=== PATIENT | male | born 1940 | race Hispanic/Latino ===

== ENCOUNTER 2016-06-23 13:39 | Inpatient (IN) | payer MEDICARE ==
--- NOTE | 2016-06-23 15:17 | ED PDOC ---
HPI: General Adult Time Seen by Provider: 06/23/16 13:48 Chief Complaint (Nursing): Abdominal Pain Chief Complaint (Provider): abdominal pain History Per: Patient History/Exam Limitations: no limitations Onset/Duration Of Symptoms: Days (x 5) Have you had recent travel within the past 21 days to any of the following countries: [place], [place], [place] or [place]?: No Current Symptoms Are (Timing): Still Present Additional History Per: Family (brother and rommate ), Prior Records Additional Complaint(s): Jose Segura is a 76 year old male, with a previous medical history of acute renal failure, who presents to the ED with complaints of constipation for the pas5 days. Pt denies any abdominal pain, nausea, vomiting or a decrease in appetite. Pt reports to feeling "great". Pt was admitted last month for acute renal failure and nstemi. Pt was sent to [facility] where he signed out AMA last week because he feels great. Pt's roommate states pt is unable to care for himself or walk. Pt's brother who has the power of steam tender is requesting a crisis evaluation after expressing concern that the pt is unable to care for himself. PMD: none provided Past Medical History Reviewed: Historical Data, Nursing Documentation, Vital Signs Vital Signs: Last Vital Signs Temp 97.3 F L 06/24/16 08:00 Pulse 63 06/24/16 08:00 Resp 18 06/24/16 08:00 BP 112/59 L 06/24/16 08:00 Pulse Ox 98 06/24/16 08:00 - Medical History Other PMH: Cerebral palsy - Surgical History Surgical History: No Surg Hx - Family History Family History: States: Unknown Family Hx - Immunization History Hx Tetanus Toxoid Vaccination: No Hx Influenza Vaccination: No Hx Pneumococcal Vaccination: No - Home Medications Home Medications: Ambulatory Orders Medication Instructions Recorded Aspirin [Ecotrin] 81 mg PO DAILY #30 tabec 05/21/16 Bisoprolol [Zebeta] 2.5 mg PO DAILY #30 tab 05/21/16 Nystatin [Nystop Topical Powder] 1 applic TOP TID #7 bottle 05/21/16 - Allergies Allergies/Adverse Reactions: Allergies Allergy/AdvReac Type Severity Reaction Status Date / Time No Known Allergies Allergy Unverified 05/05/13 07:56 Review of Systems ROS Statement: Except As Marked, All Systems Reviewed And Found Negative Constitutional: Negative for: Fever Gastrointestinal: Positive for: Constipation (x 5). Negative for: Vomiting, Abdominal Pain Neurological: Positive for: Weakness Physical Exam - Reviewed Nursing Documentation Reviewed: Yes Vital Signs Reviewed: Yes - Physical Exam Appears: Positive for: Well, Non-toxic, No Acute Distress Head Exam: Positive for: ATRAUMATIC, NORMAL INSPECTION, NORMOCEPHALIC Skin: Positive for: Normal Color, Warm, DRY Eye Exam: Positive for: EOMI, PERRL Neck: Positive for: Normal Cardiovascular/Chest: Positive for: Regular Rate, Rhythm. Negative for: Tachycardia Respiratory: Positive for: Normal Breath Sounds. Negative for: Wheezing, Respiratory Distress Gastrointestinal/Abdominal: Positive for: Normal Exam, Bowel Sounds, Soft. Negative for: Tenderness, Distended, Guarding Back: Positive for: Normal Inspection Rectal: Negative for: Black Stool Extremity: Positive for: Normal ROM Neurologic/Psych: Positive for: Alert, Oriented (x3), Motor/Sensory Deficits ( right side spastic paralysis), Gait (unsteady). Negative for: extruder tender II-XII - Laboratory Results Result Diagrams: 06/23/16 15:26 06/23/16 15:26 - ECG O2 Sat by Pulse Oximetry: 99 (RA) Pulse Ox Interpretation: Normal - Radiology X-Ray: Viewed By Me, Read By Radiologist X-Ray Interpretation: No Acute Disease - Other Rad KUB abdomen X-Ray: Read By Radiologist X-Ray Interpretation: constipation Medical Decision Making Medical Decision Making: Initial Impression: constipation, dementia, renal failure, general deconditioning Initial Plan: * CXR * CT head w/o contrast * x-ray abdomen * EKG * labs * urine dipstick * reevaluation 17:21 CT head FINDINGS: BRAIN: Status post craniotomy bilateral frontal regions. Associated encephalomalacia. Diffuse atrophy with prominence of the ventricles and sulci noted. No mass effect or midline shift. Tiny metallic density in the region of encephalomalacia in the region of the left basal ganglia. Intracranial atherosclerosis. Small lacunar infarcts appear chronic. For example, 5 mm right thalamic lacunar infarct. Scattered periventricular and subcortical white matter hypodensities, which are nonspecific, but often seen with chronic microvascular ischemic disease. Left convexity subdural hematoma with evidence acute on contact hemorrhage with high density blood within that collection. Left subdural measures approximately 10 mm in diameter. VENTRICLES: No hydrocephalus. CALVARIUM: See above. PARANASAL SINUSES: Unremarkable as visualized. No significant inflammatory changes. MASTOID AIR CELLS: Unremarkable as visualized. No inflammatory changes. OTHER FINDINGS: Opacification of bilateral external auditory canals, likely cerumen. Extensive degenerative changes at C1-C2. IMPRESSION: Acute on chronic left convexity subdural hematoma. Status post craniotomy bilateral frontal regions. Associated encephalomalacia. Nonspecific white matter changes. Chronic appearing lacunar infarcts. Tiny metallic density as described above; correlate with surgical history- this was present on CT performed in 2011. Findings discussed with Dr. Koroma on 06/23/16 at 5:18 p.m. Discussed the case with Dr Feliz who recommends no interventions and no ICU monitoring at this time. Pt is stable neurosurgically. Scribe Attestation: Documented by Tessy Marcus, acting as a scribe for Julita Koroma MD Provider Scribe Attestation: All medical record entries made by the Scribe were at my direction and personally dictated by me. I have reviewed the chart and agree that the record accurately reflects my personal performance of the history, physical exam, medical decision making, and the department course for this patient. I have also personally directed, reviewed, and agree with the discharge instructions and disposition. Disposition - Clinical Impression Clinical Impression: SDH (subdural hematoma), Constipation - Patient ED Disposition Is Patient to be Admitted: Yes Discussed With : Edgardo Sykes Doctor Will See Patient In The: Hospital Counseled Patient/Family Regarding: Studies Performed, Diagnosis - Disposition Disposition Time: 17:00 Condition: FAIR - Pt Status Changed To: Hospital Disposition Of: Inpatient - Admit Certification Admit to Inpatient:: After my assessment, the patient will require hospitalization for at least two midnights. This is because of the severity of symptoms shown, intensity of services needed, and/or the medical risk in this patient being treated as an outpatient. - POA Present On Arrival: Falls Or Trauma
--- NOTE | 2016-06-23 15:47 | RAD ---
HISTORY: constipation COMPARISON: None available FINDINGS: BOWEL: Prominent air-filled loops of small and large bowel, nonspecific. No definite free air. Mild constipation. BONES: Degenerative changes of the spine. OTHER FINDINGS: None. IMPRESSION: Prominent air-filled loops of small large bowel, nonspecific. No definite free air. Mild constipation.
--- NOTE | 2016-06-23 15:49 | RAD ---
HISTORY: weakness COMPARISON: Chest x-ray performed 05/14/16 TECHNIQUE: Chest, one view. FINDINGS: Examination limited by habitus and hypoinflation. LUNGS: Right middle lobe atelectasis or scarring re-identified. Please note that chest x-ray has limited sensitivity for the detection of pulmonary masses. PLEURA: No significant pleural effusion identified. No definite pneumothorax . CARDIOVASCULAR: Heart size appears within normal limits. Ectatic aorta containing atherosclerotic calcifications. OSSEOUS STRUCTURES: Degenerative changes. VISUALIZED UPPER ABDOMEN: Unremarkable. OTHER FINDINGS: None. IMPRESSION: Right middle lobe atelectasis or scarring re-identified.
[2016-06-23 15:56] LABS: BASO # 0.1 K/uL (0.0-0.2); BASO % 0.9 % (0.0-2.0); EOS # 0.1 K/uL (0.0-0.7); EOS % 1.1 % (0.0-4.0); HEMATOCRIT 35.7 % (35.0-51.0); LYMPH # 0.9 K/uL (1.0-4.3); LYMPH % 8.4 % (20.0-40.0); MEAN CORPUSCULAR HEMOGLOBIN 32.2 pg (27.0-31.0); MEAN CORPUSCULAR HGB CONC 32.5 g/dL (33.0-37.0); MEAN PLATELET VOLUME 7.2 fl (7.2-11.7); MONO # 0.9 K/uL (0.0-0.8); MONO % 8.6 % (0.0-10.0); NEUT # 8.5 K/uL (1.8-7.0); PLATELET COUNT 238 K/uL (130-400); RED CELL DISTRIBUTION WIDTH 13.6 % (11.5-14.5); WHITE BLOOD COUNT 10.4 K/uL (4.8-10.8)
[2016-06-23 16:07] LABS: CALCIUM 8.7 mg/dL (8.4-10.2); POTASSIUM 4.9 MMOL/L (3.6-5.0)
[2016-06-23 17:07] LABS: BASOPHIL 1 % (0-2); EOSINOPHIL 2 % (0-7); NEUTROPHIL 82 % (42-75); TOTAL CELLS COUNTED 100
--- NOTE | 2016-06-23 17:24 | CT ---
PROCEDURE: CT HEAD WITHOUT CONTRAST. HISTORY: dementia COMPARISON: Noncontrast head CT performed 03/26/12 TECHNIQUE: Axial computed tomography images were obtained through the head/brain without intravenous contrast. Radiation dose: Total exam DLP = noncontrast head CT performed 03/26/12 mGy-cm. FINDINGS: BRAIN: Status post craniotomy bilateral frontal regions. Associated encephalomalacia. Diffuse atrophy with prominence of the ventricles and sulci noted. No mass effect or midline shift. Tiny metallic density in the region of encephalomalacia in the region of the left basal ganglia. Intracranial atherosclerosis. Small lacunar infarcts appear chronic. For example, 5 mm right thalamic lacunar infarct. Scattered periventricular and subcortical white matter hypodensities, which are nonspecific, but often seen with chronic microvascular ischemic disease. Left convexity subdural hematoma with evidence acute on contact hemorrhage with high density blood within that collection. Left subdural measures approximately 10 mm in diameter. VENTRICLES: No hydrocephalus. CALVARIUM: See above. PARANASAL SINUSES: Unremarkable as visualized. No significant inflammatory changes. MASTOID AIR CELLS: Unremarkable as visualized. No inflammatory changes. OTHER FINDINGS: Opacification of bilateral external auditory canals, likely cerumen. Extensive degenerative changes at C1-C2. IMPRESSION: Acute on chronic left convexity subdural hematoma. Status post craniotomy bilateral frontal regions. Associated encephalomalacia. Nonspecific white matter changes. Chronic appearing lacunar infarcts. Tiny metallic density as described above; correlate with surgical history- this was present on CT performed in 2011. Findings discussed with Dr. Koroma on 06/23/16 at 5:18 p.m.
[2016-06-23 18:53] LABS: PARTIAL THROMBOPLASTIN TIME 28.9 SECONDS (23.3-32.5)
--- NOTE | 2016-06-24 07:14 | CARD ---
APPROVED REPORT EKG Measurement Heart [id number] ID [id number] <Conclusion> Sinus rhythm with premature atrial complexes Otherwise normal ECG
[2016-06-24] MEDS ORDERED: Permethrin 5% CREAM TOP ONE (11:00)
--- NOTE | 2016-06-24 13:53 | PQF GENQUE ---
Dr. Sykes, (1)Pressure Ulcer(s) POA? ;if yes (2) Sites and Stages OR: Disagree OR: Other explanation of clinical findings OR:Unable to determine -H and P not entered yet -ER MD: POA:Present On Arrival: Falls Or Trauma -Nurses Admission Assessment:06/23:Pressure Ulcer Assessment; left heel: purple or maroon localized area intact skin; left thigh: partial thickness loss of dermis shallow open ulcer; right hip: erythema: partial thickness loss of dermis presenting as a shallow ulcer; right ankle: erythema; partial thickness loss of dermis presenting as a shallow open ulcer; right buttocks; erythema: partial thickness loss of dermis presenting as a shallow ulcer; sacrum: partial thickness loss of dermis presenting as a shallow open ulcer -06/24:Wound RN :Notes tab; presents to unit with pressure ulcers right hip; right hip MASD; b/l groin/gluteal cleft: reddened skin consistent with fungal rash This form is a permanent part of the medical record Clarification of your documentation is requested to better reflect the severity of illness and intensity of treatment of your patient. Indicators present [] Specify: [] [] Specify: [] [] Specify: [] [] Specify: [] Location in the medical record that reflects the above clinical findings: [] Treatment Provided: [] PHYSICIAN'S RESPONSE Based on your medical judgment of the clinical indicators outlined above please clarify the following: [] Practitioner response [] If unable to determine, please check the box, sign and date. Present On Admission (POA) Indicator: [] Present at the time of admission [] Not present at the time of admission [] Clinically Undetermined In responding to this query, please exercise your independent professional judgment. The fact that a question is asked does not imply that any particular answer is desired or expected. Thank you for your clarification on this documentation. If you have any questions please call. * Thank you, Mar Way RN BSN ext. #[phone] MTDD
--- NOTE | 2016-06-24 14:18 | CP.PCM.HP ---
<Tami Zelaya - Last Filed: 06/24/16 14:35> History of Present Illness - History of Present Illness History of Present Illness: Pt is a 76 year old male, with a pmhx of cerebral palsy , acute renal failure, who presents to the ED with complaints of constipation for the past 5 days. Pt denies any abdominal pain, nausea, vomiting or a decrease in appetite. Pt reports to feeling "great". Pt was admitted last month for acute renal failure and nstemi. Pt was sent to [facility] where he signed out AMA last week because he feels great. Pt's roommate states pt is unable to care for himself or walk. Pt's brother who has the power of regulatory attorney is requesting a crisis evaluation after expressing concern that the pt is unable to care for himself. Ed showed a subdural hematoma. Pt seen and examined this morning at bedside, does not have any complaints. states he feels well. denies chest pain, sob, or any visual changes Present on Admission - Present on Admission Any Indicators Present on Admission: Yes Urinary Catheter: No Decubitus Ulcer Present: Yes (right hip ) Review of Systems - Review of Systems All systems: reviewed and no additional remarkable complaints except Review of Systems: Per HPI Past Patient History - Past Medical History & Family History Past Medical History?: Yes - Past Social History Smoking Status: Former Smoker - CARDIAC Hx Cardiac Disorders: Yes Hx Heart Attack: Yes (NSTEmi) - PULMONARY Hx Respiratory Disorders: Yes (Hx heavy smoker) - NEUROLOGICAL Hx Neurological Disorder: Yes (cerebral palsy/ chronic subdural hematoma/ Encephalomalcia/Atrophy) - HEENT Hx HEENT Problems: No - RENAL Hx Chronic Kidney Disease: Yes (ARF in past) - ENDOCRINE/METABOLIC Hx Endocrine Disorders: No - HEMATOLOGICAL/ONCOLOGICAL Hx Blood Disorders: No Hx AIDS: No Hx Human Immunodeficiency Virus (HIV): No - INTEGUMENTARY Hx Dermatological Problems: Yes (Pressure ulcers and severe excoriation) - MUSCULOSKELETAL/RHEUMATOLOGICAL Hx Musculoskeletal Disorders: Yes Hx Falls: Yes (cannot remember no. of falls) Other/Comment: cerebral palsy - GASTROINTESTINAL Hx Gastrointestinal Disorders: No - GENITOURINARY/GYNECOLOGICAL Hx Genitourinary Disorders: No - PSYCHIATRIC Hx Substance Use: No - SURGICAL HISTORY Hx Surgeries: Yes Other/Comment: "brain surgery" - ANESTHESIA Hx Anesthesia: Yes Hx Anesthesia Reactions: No Hx Malignant Hyperthermia: No Meds Allergies/Adverse Reactions: Allergies Allergy/AdvReac Type Severity Reaction Status Date / Time No Known Allergies Allergy Unverified 05/05/13 07:56 Physical Exam - Constitutional Appears: No Acute Distress Additional comments: scar like appearing lesions noted on his back and lower extremity - Head Exam Head Exam: NORMOCEPHALIC - Eye Exam Eye Exam: Normal appearance - Respiratory Exam Respiratory Exam: Clear to Auscultation Bilateral, NORMAL BREATHING PATTERN. absent: Rhonchi, Wheezes - Cardiovascular Exam Cardiovascular Exam: REGULAR RHYTHM, +S1 - GI/Abdominal Exam GI & Abdominal Exam: Normal Bowel Sounds, Soft. absent: Tenderness - Extremities Exam Extremities exam: Negative for: pedal edema Additional comments: excoriations noted bilaterally - Back Exam Additional comments: excoriations noted, lesions noted - Neurological Exam Neurological exam: Alert Results - Vital Signs Recent Vital Signs: Last Vital Signs Temp 97.3 F L 06/24/16 08:00 Pulse 63 06/24/16 08:00 Resp 18 06/24/16 08:00 BP 112/59 L 06/24/16 08:00 Pulse Ox 99 06/24/16 10:01 - Labs Result Diagrams: 06/23/16 15:26 06/23/16 15:26 Labs: Laboratory Results - last 24 hr 06/23/16 06/23/16 06/24/16 17:57 23:47 07:07 PT 11.4 H INR 1.10 H APTT 28.9 Troponin I 0.1760 H* 0.1580 H* Assessment & Plan - Assessment and Plan (Free Text) Assessment: 76 y/o male with h/o Cerebral palsy with gait disturbance admitted Plan: Subdural hematoma neurosurgery consulted monitor constipation bowel regime ordered skin lesions- Scabies pt isolated permethrin applied SHUKRI possibly acute on chronic IVF renal dosing of medication nephro consult: Dr. grant, await recommendations Elevated troponins likely renal origin patient had possible previous inferior infarct last admission; patient stable; no acute cardiac problem likely Cardio on board: Dr Digna loco as ordered 3. DVT prophylaxis- SCDs for now, awaiting cardiology recommendation <Edgardo Sykes K - Last Filed: 06/27/16 12:39> Results - Vital Signs Recent Vital Signs: Last Vital Signs Temp 97.5 F L 06/27/16 08:18 Pulse 55 L 06/27/16 08:18 Resp 18 06/27/16 08:18 BP 136/70 06/27/16 08:18 Pulse Ox 98 06/27/16 08:18 - Labs Result Diagrams: 06/27/16 06:20 06/27/16 06:30 Labs: Laboratory Results - last 24 hr 06/27/16 06/27/16 06:20 06:30 WBC 6.2 RBC 3.78 L Hgb 12.2 Hct 37.4 MCV 99.0 H MCH 32.4 H MCHC 32.7 L RDW 13.7 Plt Count 218 Sodium 143 Potassium 5.3 H Chloride 109 H Carbon Dioxide 22 Anion Gap 17 BUN 55 H Creatinine 2.3 H Est GFR ( Amer) 34 Est GFR (Non-Af Amer) 28 Random Glucose 84 Calcium 8.9 Assessment & Plan - Assessment and Plan (Free Text) Assessment: Patient was personally seen and examined by me in rounds with residents. Available labs and diagnostic data reviewed. Case, Patient's condition and management plan discussed with residents in rounds. Agree with resident's documentation. Plan: As ordered. Edgardo Sykes MD
--- NOTE | 2016-06-24 16:12 | CON ---
DATE: 06/24/2016 REASON FOR CONSULTATION: Elevated troponin. HISTORY OF PRESENT ILLNESS: The patient is a 76-year-old male who has history of chronic subdural he matoma, has history of multiple falls. Was recently discharged to subacute rehab; however, he signed against medical advice. He presents because of abdominal pain. The patient also reported multiple falls at home, but he cannot elaborate on how and why he fell. The patient denies any chest pain. T he patient was admitted last month to [facility] because of cough and cold symptoms. At that time, the patient had slightly elevated troponin of 0.175 and 0.158. An echocardiograph study was performe d this past May and was reported to be a normal echocardiogram. [facility]. As I mentioned earlier, he denies any chest pain. SOCIAL HISTORY: The patient is occasional drinker. He lives with a friend according to him. Aniket ramos, his brother has power of corporate attorney. MEDICATIONS: Atarax 25 mg q.6 hours p.r.n., aspirin 81 mg once a day, normal saline 40 mL an hour, Z ebeta 2.5 mg once a day. REVIEW OF SYSTEMS: The patient is unaware of seizures and denies any history of nausea or vomiting. He denies any fever or chills. PAST MEDICAL HISTORY: History of craniotomy for subdural hematoma. History of [place] palsy. PHYSICAL EXAMINATION: GENERAL: The patient is an elderly male who does not appear to be in acute distress. VITAL SIGNS: Blood pressure 112/59, heart rate 63, temperature 97.3, respirations 18. HEENT: Pale conjunctivae. CHEST: Clear. HEART: S1, S2 regular. ABDOMEN: Soft. EXTREMITIES: No edema. EKG revealed sinus rhythm with an APC. LABORATORY DATA: CBC: WBC 10.4, hemoglobin 11.6, hematocrit 35.7, platelet count 238,000. SMA-7: Sodium 135, potassium 4.9, chloride 109, CO2 of 17, glucose 100, BUN 60, creatinine 2.4. Troponin 0. [address] scan done yesterday revealed [id number] left convexity subdural hematom a. Status post craniotomy, bilateral frontal lesions. Associated encephalomalacia. Nonspecific whi te matter changes. Chronic appearing lacunar infarct. A tiny metallic density correlates with surgi ced history. This was present on a CT scan of 2011. ASSESSMENT: 1. Borderline troponin elevation. Does not necessarily reflect myocardial injury in view of abnorma l EKG, absence of chest pain and recent normal echocardiograph study and that fact that did have mike lar scenario in May admission last month. 2. Rule out acute cerebrovascular accident. 3. Chronic renal insufficiency. 4. Uzedz-[id number]-[id number] left convexity subdural hematoma. RECOMMENDATIONS: Continue aspirin 81 mg once a day, Zebeta 2.5 mg once a day. Start Lipitor at 20 m g once a day. Anticoagulation or aggressive antiplatelet therapy are not justified in the presence o f acute component of subdural hematoma. Neurology and neurosurgical consults are pending. Shaka Sawyer MD cc: [id number] TT: 06/24/2016 16:11:21 Confirmation # [id number] Dictation # [id number]
[2016-06-24] MEDS: Sodium Chloride 0.9% 1,000 ML IV SCH (19:30)
[2016-06-25] MEDS: Sodium Chloride 0.9% 1,000 ML IV SCH (04:08)
--- NOTE | 2016-06-25 08:45 | DS ---
A 76-year-old male [facility], apparently fell. Brought in apparently in his usual depresse d mental status. CT of the brain was done, which showed a large convexity subdural hygroma. The pat ient is status post ____ bilateral either jaqui holes or craniotomy, difficult to discern. In any cl e, there was tremendous underlying atrophy and there was a subdural collection on the left side measu ring approximately 8 or 9 mm, absolutely no mass effect. No evidence of any acute hemorrhage. IMPRESSION AND PLAN: Apparently, the patient is being admitted for other reasons. Therefore, I woul d, just to be safe, perhaps consider a followup CT tomorrow, but there really should be no need. Aga in, this is a chronic longstanding finding without clinical significance. Gregory Feliz MD cc: [id number] TT: 06/24/2016 12:52:54
[2016-06-25 11:16] LABS: MEAN CELL VOLUME 98.5 fl (80.0-94.0); MEAN CORPUSCULAR HEMOGLOBIN 32.6 pg (27.0-31.0); MEAN CORPUSCULAR HGB CONC 33.1 g/dL (33.0-37.0); RED CELL DISTRIBUTION WIDTH 13.9 % (11.5-14.5); WHITE BLOOD COUNT 6.4 K/uL (4.8-10.8)
[2016-06-25 11:25] LABS: CALCIUM 8.8 mg/dL (8.4-10.2); POTASSIUM 4.5 MMOL/L (3.6-5.0)
--- NOTE | 2016-06-25 12:28 | CP.PCM.PN ---
<Tami Zelaya - Last Filed: 06/25/16 12:31> Subjective - Date & Time of Evaluation Date of Evaluation: 06/25/16 Time of Evaluation: 08:15 - Subjective Subjective: Pt was seen and examined at bedside, does not have any complaints, states he feels fine. Objective - Vital Signs/Intake and Output Vital Signs (last 24 hours): Temp Pulse Resp BP Pulse Ox 98.1 F 69 20 105/56 L 97 06/25/16 08:16 06/25/16 09:00 06/25/16 08:16 06/25/16 08:16 06/25/16 08:16 - Medications Medications: Current Medications Aspirin (Ecotrin) 81 mg PO DAILY [facility] Last Admin: 06/25/16 09:18 Dose: 81 mg Atorvastatin Calcium (Lipitor) 20 mg PO DAILY [facility] Last Admin: 06/25/16 09:18 Dose: 20 mg Bisoprolol Fumarate (Zebeta) 2.5 mg PO DAILY [facility] Last Admin: 06/25/16 09:19 Dose: 2.5 mg Hydroxyzine HCl (Atarax) 25 mg PO Q6 PRN PRN Reason: Itching / Pruritus - Labs Labs: 06/25/16 11:03 06/25/16 11:03 PT 11.4 SECONDS (9.6-11.2) H 06/23/16 17:57 INR 1.10 (0.92-1.08) H 06/23/16 17:57 APTT 28.9 SECONDS (23.3-32.5) 06/23/16 17:57 - Constitutional Appears: Non-toxic, No Acute Distress - Head Exam Head Exam: NORMOCEPHALIC - Eye Exam Eye Exam: Normal appearance - ENT Exam ENT Exam: Mucous Membranes Moist - Respiratory Exam Respiratory Exam: Clear to Ausculation Bilateral, NORMAL BREATHING PATTERN. absent: Wheezes - Cardiovascular Exam Cardiovascular Exam: REGULAR RHYTHM, +S1, +S2 - GI/Abdominal Exam GI & Abdominal Exam: Soft, Normal Bowel Sounds. absent: Tenderness - Neurological Exam Neurological Exam: Awake - Skin Skin Exam: Rash (scabies rash all over body ) Assessment and Plan - Assessment and Plan (Free Text) Assessment: 76 y/o male with h/o Cerebral palsy with gait disturbance admitted Plan: Subdural hematoma neurosurgery consulted monitor constipation bowel regime ordered skin lesions- Scabies pt isolated permethrin applied SHUKRI possibly acute on chronic IVF renal dosing of medication nephro consult: Dr. grant, await recommendations Elevated troponins likely renal origin patient had possible previous inferior infarct last admission; patient stable; no acute cardiac problem likely Cardio on board: Dr Digna loco as ordered DVT prophylaxis- SCDs for now, awaiting cardiology recommendation Discharge Disposition : social workers on case to work out placement <Edgardo Sykes - Last Filed: 06/27/16 12:40> Objective - Vital Signs/Intake and Output Vital Signs (last 24 hours): Temp Pulse Resp BP Pulse Ox 97.5 F L 55 L 18 136/70 98 06/27/16 08:18 06/27/16 08:18 06/27/16 08:18 06/27/16 08:18 06/27/16 08:18 - Medications Medications: Current Medications Aspirin (Ecotrin) 81 mg PO DAILY [facility] Last Admin: 06/27/16 08:31 Dose: 81 mg Atorvastatin Calcium (Lipitor) 20 mg PO DAILY [facility] Last Admin: 06/27/16 08:32 Dose: 20 mg Bisoprolol Fumarate (Zebeta) 2.5 mg PO DAILY [facility] Last Admin: 06/27/16 08:32 Dose: 2.5 mg Hydroxyzine HCl (Atarax) 25 mg PO Q6 PRN PRN Reason: Itching / Pruritus - Labs Labs: 06/27/16 06:20 06/27/16 06:30 PT 11.4 SECONDS (9.6-11.2) H 06/23/16 17:57 INR 1.10 (0.92-1.08) H 06/23/16 17:57 APTT 28.9 SECONDS (23.3-32.5) 06/23/16 17:57 Assessment and Plan - Assessment and Plan (Free Text) Assessment: Patient was personally seen and examined by me in rounds with residents. Available labs and diagnostic data reviewed. Case, Patient's condition and management plan discussed with residents in rounds. Agree with resident's documentation. Plan: As ordered. Edgardo Sykes MD
--- NOTE | 2016-06-25 15:04 | PN ---
DATE: 06/25/2016 The patient denies any chest pain. He has good appetite. He denies any headache or dizziness. PHYSICAL EXAMINATION: VITAL SIGNS: Blood pressure 106/58, heart rate 54, temperature 97.5, respirations 20. HEENT: Pale conjunctivae. CHEST: Bilateral rhonchi. HEART: S1, S2 regular. EXTREMITIES: No edema. LABORATORIES: Hemoglobin and hematocrit 11.3 and 34.0. White count and platelet count is within nor mal limits. SMA-7: Sodium 139, potassium 4.5, chloride 112, CO2 of 22, glucose 118, BUN 53, creatin ine 2.4. ASSESSMENT: 1. Borderline troponin elevation, unlikely represents acute myocardial injury in the absence of ches t pain or ischemic EKG changes. 2. Acute on top of chronic subdural hematoma. 3. Chronic renal insufficiency. RECOMMENDATIONS: Continue current aspirin 81 mg once a day, Lipitor 20 mg once a day and Zebeta at 2 .5 mg once a day. Obtain serum D-dimer and schedule patient for venous Doppler of lower extremities. Shaka Sawyer MD cc: [id number] TT: 06/25/2016 15:04:40 Confirmation # [id number] Dictation # [id number] lilli
--- NOTE | 2016-06-25 15:54 | CP.PCM.CON ---
History of Present Illness - History of Present Illness History of Present Illness: 76 y/o male with Hx/o cerebral palsy, subdural hematoma,s/p craniotomy was admitted for c/o constipation for 5 days & multiple falls. renal consult is requested because of elevated BUN/Creat Pt was adm to [facility] a wk ago for frequent falls, NSEMI & acute kidney injury. Was evaluated by Dr Escoto. Kidney function had improved but creat had stabilized around 2.2. Renal US was unremarkable. Past Patient History - Past Medical History & Family History Past Medical History?: Yes - Past Social History Smoking Status: Former Smoker - CARDIAC Hx Cardiac Disorders: Yes Hx Heart Attack: Yes (NSTEmi) - PULMONARY Hx Respiratory Disorders: Yes (Hx heavy smoker) - NEUROLOGICAL Hx Neurological Disorder: Yes (cerebral palsy/ chronic subdural hematoma/ Encephalomalcia/Atrophy) - HEENT Hx HEENT Problems: No - RENAL Hx Chronic Kidney Disease: Yes (ARF in past) - ENDOCRINE/METABOLIC Hx Endocrine Disorders: No - HEMATOLOGICAL/ONCOLOGICAL Hx Blood Disorders: No Hx AIDS: No Hx Human Immunodeficiency Virus (HIV): No - INTEGUMENTARY Hx Dermatological Problems: Yes (Pressure ulcers and severe excoriation) - MUSCULOSKELETAL/RHEUMATOLOGICAL Hx Musculoskeletal Disorders: Yes Hx Falls: Yes (cannot remember no. of falls) Other/Comment: cerebral palsy - GASTROINTESTINAL Hx Gastrointestinal Disorders: No - GENITOURINARY/GYNECOLOGICAL Hx Genitourinary Disorders: No - PSYCHIATRIC Hx Substance Use: No - SURGICAL HISTORY Hx Surgeries: Yes Other/Comment: "brain surgery" - ANESTHESIA Hx Anesthesia: Yes Hx Anesthesia Reactions: No Hx Malignant Hyperthermia: No Meds Allergies/Adverse Reactions: Allergies Allergy/AdvReac Type Severity Reaction Status Date / Time No Known Allergies Allergy Unverified 05/05/13 07:56 - Medications Medications: Current Medications Aspirin (Ecotrin) 81 mg PO DAILY [facility] Last Admin: 06/25/16 09:18 Dose: 81 mg Atorvastatin Calcium (Lipitor) 20 mg PO DAILY [facility] Last Admin: 06/25/16 09:18 Dose: 20 mg Bisoprolol Fumarate (Zebeta) 2.5 mg PO DAILY [facility] Last Admin: 06/25/16 09:19 Dose: 2.5 mg Hydroxyzine HCl (Atarax) 25 mg PO Q6 PRN PRN Reason: Itching / Pruritus Physical Exam - Constitutional Appears: No Acute Distress - Head Exam Head Exam: NORMOCEPHALIC - Eye Exam Additional comments: No icterus - ENT Exam ENT Exam: Mucous Membranes Dry - Neck Exam Additional comments: Neck supple - Respiratory Exam Respiratory Exam: NORMAL BREATHING PATTERN Additional comments: Lungs clear - Cardiovascular Exam Cardiovascular Exam: REGULAR RHYTHM - GI/Abdominal Exam GI & Abdominal Exam: Soft Additional comments: No CVA tenderness - Extremities Exam Additional comments: No edema or cyanosis Results - Vital Signs Recent Vital Signs: Last Vital Signs Temp 97.5 F L 06/25/16 12:27 Pulse 54 L 06/25/16 12:27 Resp 20 06/25/16 12:27 BP 106/58 L 06/25/16 12:27 Pulse Ox 96 06/25/16 12:27 - Labs Result Diagrams: 06/25/16 11:03 06/25/16 11:03 Labs: Laboratory Results - last 24 hr 06/24/16 06/25/16 06/25/16 16:20 11:03 15:08 WBC 6.4 RBC 3.46 L Hgb 11.3 L Hct 34.0 L MCV 98.5 H MCH 32.6 H MCHC 33.1 RDW 13.9 Plt Count 220 D-Dimer, Quantitative 2.56 H Sodium 139 Potassium 4.5 Chloride 112 H Carbon Dioxide 22 Anion Gap 10 BUN 53 H Creatinine 2.4 H Est GFR ( Amer) 32 Est GFR (Non-Af Amer) 26 Random Glucose 118 H Calcium 8.8 Troponin I 0.1050 Assessment & Plan - Assessment and Plan (Free Text) Assessment: Acute on chronic renal failure. Renal function is stable Acute on chronic SDH Cerebral palsy Plan: Monitor renal function Will order Phos level, iPTH
--- NOTE | 2016-06-25 16:07 | US ---
PROCEDURE: Bilateral lower extremity venous duplex Doppler. HISTORY: r/o DVT COMPARISON: None available. TECHNIQUE: Bilateral common femoral, superficial femoral, popliteal and posterior tibial veins were evaluated. Flow was assessed with color Doppler, compressibility, assessment of phasic flow and augmentation response. FINDINGS: COMMON FEMORAL VEIN: Right CFV: Unremarkable. Left CFV: Unremarkable. SUPERFICIAL FEMORAL VEIN: Right SFV: Unremarkable. Left SFV: Unremarkable. POPLITEAL VEIN: Right Popliteal: Unremarkable. Left Popliteal: Unremarkable. POSTERIOR TIBIAL VEIN: Right PTV: Unremarkable. Left PTV: Unremarkable. OTHER FINDINGS: None. IMPRESSION: No evidence of deep venous thrombosis.
[2016-06-26 09:50] LABS: CALCIUM 8.7 mg/dL (8.4-10.2); POTASSIUM 4.8 MMOL/L (3.6-5.0)
--- NOTE | 2016-06-26 10:48 | CP.PCM.PCO ---
Assessment and Plan - Assessment and Plan (Free Text) Plan: Patient medically treated for scabies with permetherin cream on 06/24 and now off isolation.
--- NOTE | 2016-06-26 13:07 | CP.PCM.PN ---
<Tami Zelaya - Last Filed: 06/26/16 13:08> Subjective - Date & Time of Evaluation Date of Evaluation: 06/26/16 Time of Evaluation: 08:00 - Subjective Subjective: pt seen and examined at bedside, does not have any complaints. states he feel "fine". denies any chest pain, headache or shortness of breath Objective - Vital Signs/Intake and Output Vital Signs (last 24 hours): Temp Pulse Resp BP Pulse Ox 97.5 F L 53 L 20 125/67 95 06/26/16 12:57 06/26/16 12:57 06/26/16 12:57 06/26/16 12:57 06/26/16 12:57 - Medications Medications: Current Medications Aspirin (Ecotrin) 81 mg PO DAILY [facility] Last Admin: 06/26/16 10:02 Dose: 81 mg Atorvastatin Calcium (Lipitor) 20 mg PO DAILY [facility] Last Admin: 06/26/16 10:00 Dose: 20 mg Bisoprolol Fumarate (Zebeta) 2.5 mg PO DAILY [facility] Last Admin: 06/26/16 10:01 Dose: 2.5 mg Hydroxyzine HCl (Atarax) 25 mg PO Q6 PRN PRN Reason: Itching / Pruritus - Labs Labs: 06/25/16 11:03 06/26/16 09:31 PT 11.4 SECONDS (9.6-11.2) H 06/23/16 17:57 INR 1.10 (0.92-1.08) H 06/23/16 17:57 APTT 28.9 SECONDS (23.3-32.5) 06/23/16 17:57 - Constitutional Appears: Non-toxic, No Acute Distress - Eye Exam Eye Exam: Normal appearance - ENT Exam ENT Exam: Mucous Membranes Moist - Respiratory Exam Respiratory Exam: Clear to Ausculation Bilateral, NORMAL BREATHING PATTERN. absent: Rhonchi, Wheezes - Cardiovascular Exam Cardiovascular Exam: REGULAR RHYTHM, +S1, +S2 - GI/Abdominal Exam GI & Abdominal Exam: Soft, Normal Bowel Sounds. absent: Tenderness - Extremities Exam Extremities Exam: absent: Calf Tenderness - Neurological Exam Neurological Exam: Awake Assessment and Plan - Assessment and Plan (Free Text) Assessment: 76 y/o male with h/o Cerebral palsy with gait disturbance admitted Plan: Subdural hematoma neurosurgery recommendations appreciated monitor constipation bowel regime ordered skin lesions- Scabies pt isolated permethrin applied SHUKRI possibly acute on chronic IVF renal dosing of medication nephro consult: Dr. grant, await recommendations Elevated troponins likely renal origin patient had possible previous inferior infarct last admission; patient stable; no acute cardiac problem likely Cardio on board: Dr Digna loco as ordered DVT prophylaxis- SCDs for now, awaiting cardiology recommendation Discharge Disposition : pt is medically stable for discharge; social workers on case to work out placement <Edgardo Sykes - Last Filed: 06/27/16 12:43> Objective - Vital Signs/Intake and Output Vital Signs (last 24 hours): Temp Pulse Resp BP Pulse Ox 97.5 F L 55 L 18 136/70 98 06/27/16 08:18 06/27/16 08:18 06/27/16 08:18 06/27/16 08:18 06/27/16 08:18 - Medications Medications: Current Medications Aspirin (Ecotrin) 81 mg PO DAILY [facility] Last Admin: 06/27/16 08:31 Dose: 81 mg Atorvastatin Calcium (Lipitor) 20 mg PO DAILY [facility] Last Admin: 06/27/16 08:32 Dose: 20 mg Bisoprolol Fumarate (Zebeta) 2.5 mg PO DAILY [facility] Last Admin: 06/27/16 08:32 Dose: 2.5 mg Hydroxyzine HCl (Atarax) 25 mg PO Q6 PRN PRN Reason: Itching / Pruritus - Labs Labs: 06/27/16 06:20 06/27/16 06:30 PT 11.4 SECONDS (9.6-11.2) H 06/23/16 17:57 INR 1.10 (0.92-1.08) H 06/23/16 17:57 APTT 28.9 SECONDS (23.3-32.5) 06/23/16 17:57 Assessment and Plan - Assessment and Plan (Free Text) Assessment: Patient was personally seen and examined by me in rounds with residents. Available labs and diagnostic data reviewed. Case, Patient's condition and management plan discussed with residents in rounds. Agree with resident's documentation. Plan: As ordered. Edgardo Sykes MD
--- NOTE | 2016-06-26 14:15 | PN ---
DATE: 06/26/2016 Again, the patient denies any dizziness, headache or chest pain. PHYSICAL EXAMINATION: VITAL SIGNS: Blood pressure 125/63, heart rate 53, temperature 97.5, respirations 20. HEENT: No pallor or icterus. NECK: No JVD. CHEST: Clear. HEART: S1, S2 regular. EXTREMITIES: No edema. LABORATORIES: SMA-7: Sodium 136, potassium 4.8, chloride 110, CO2 20, glucose 121, BUN 54, creatini ne 2.2. ASSESSMENT: 1. Status post fall. 2. Acute on top of chronic subdural hematoma. 3. Borderline troponin elevation, unlikely represents acute myocardial injury. 4. Chronic renal insufficiency. RECOMMENDATIONS: Continue current aspirin 81 mg once a day, Lipitor at 20 mg once a day, Zebeta at 2 .5 mg once a day. The venous Doppler of lower extremities revealed no evidence of deep venous thromb osis. Prophylactic anticoagulation will not be justified in the presence of acute component of subdu ral hematoma. Shaka Sawyer MD cc: [id number] TT: 06/26/2016 14:14:29 Confirmation # [id number] Dictation # [id number]
--- NOTE | 2016-06-26 15:35 | CP.PCM.PN ---
Subjective - Date & Time of Evaluation Date of Evaluation: 06/26/16 Time of Evaluation: 01:00 - Subjective Subjective: Alert & communicative verbally Objective - Vital Signs/Intake and Output Vital Signs (last 24 hours): Temp Pulse Resp BP Pulse Ox 97.5 F L 53 L 20 125/67 95 06/26/16 12:57 06/26/16 12:57 06/26/16 12:57 06/26/16 12:57 06/26/16 12:57 - Medications Medications: Current Medications Aspirin (Ecotrin) 81 mg PO DAILY [facility] Last Admin: 06/26/16 10:02 Dose: 81 mg Atorvastatin Calcium (Lipitor) 20 mg PO DAILY [facility] Last Admin: 06/26/16 10:00 Dose: 20 mg Bisoprolol Fumarate (Zebeta) 2.5 mg PO DAILY [facility] Last Admin: 06/26/16 10:01 Dose: 2.5 mg Hydroxyzine HCl (Atarax) 25 mg PO Q6 PRN PRN Reason: Itching / Pruritus - Labs Labs: 06/25/16 11:03 06/26/16 09:31 PT 11.4 SECONDS (9.6-11.2) H 06/23/16 17:57 INR 1.10 (0.92-1.08) H 06/23/16 17:57 APTT 28.9 SECONDS (23.3-32.5) 06/23/16 17:57 - Respiratory Exam Additional comments: Lungs clear - Cardiovascular Exam Cardiovascular Exam: REGULAR RHYTHM - GI/Abdominal Exam GI & Abdominal Exam: Soft - Extremities Exam Additional comments: No edema Assessment and Plan - Assessment and Plan (Free Text) Assessment: Acute on chronic kidney dis. Renal function is stable CAD. + troponin SDH Cerebral Palsy Plan: Continue tp monitor renal function
--- NOTE | 2016-06-26 15:44 | CT ---
PROCEDURE: CT HEAD WITHOUT CONTRAST. HISTORY: f/u CT for subdural hematoma COMPARISON: 06/23/2016 TECHNIQUE: Axial computed tomography images were obtained through the head/brain without intravenous contrast. Radiation dose: Total exam DLP = 1309.54 mGy-cm. FINDINGS: HEMORRHAGE: No acute hemorrhage identified. There is a left convexity subdural collection of low attenuation with intermediate attenuation material dependently consistent with hematocrit effect. This likely represents acute on chronic subdural hemorrhage. The collection is grossly unchanged in size. It measures up to 10 mm in width. There is a small focus of high attenuation along the lateral wall of this collection likely representing blood clot. . This is seen on series 4, image 43. No new extra-axial collection is identified. There is no parenchymal hemorrhage noted. BRAIN: Bilateral frontal encephalomalacia immediately subjacent to bilateral frontal calvarial jaqui holes. Old large left basal ganglia lacunar infarct and bilateral old thalamic lacunar infarcts. Probable aneurysm clip on left side, series 4, image 25. Mild diffuse age-appropriate atrophy. Moderate periventricular white matter lucency consistent with chronic microvascular ischemic change. VENTRICLES: No ventriculomegaly. No midline shift. CALVARIUM: Bilateral frontal calvarial jaqui holes. PARANASAL SINUSES: Unremarkable as visualized. No significant inflammatory changes. MASTOID AIR CELLS: Unremarkable as visualized. No inflammatory changes. OTHER FINDINGS: Extensive cerumen in external auditory canal bilaterally IMPRESSION: Probable acute on chronic left convexity subdural hematoma. No significant change in size since 06/23/2016. Bilateral frontal calvarial jaqui holes. Bilateral frontal encephalomalacia. Old lacunar infarcts. Probable old aneurysm clip.
[2016-06-27 07:24] LABS: CALCIUM 8.9 mg/dL (8.4-10.2); POTASSIUM 5.3 MMOL/L (3.6-5.0)
[2016-06-27 07:30] LABS: HEMATOCRIT 37.4 % (35.0-51.0); MEAN CORPUSCULAR HEMOGLOBIN 32.4 pg (27.0-31.0); MEAN CORPUSCULAR HGB CONC 32.7 g/dL (33.0-37.0); RED CELL DISTRIBUTION WIDTH 13.7 % (11.5-14.5); WHITE BLOOD COUNT 6.2 K/uL (4.8-10.8)
--- NOTE | 2016-06-27 10:21 | CP.PCM.PN ---
Subjective - Date & Time of Evaluation Date of Evaluation: 06/27/16 Time of Evaluation: 10:19 - Subjective Subjective: Patient is arousable No acute distress Appeared to be comfortable Objective - Vital Signs/Intake and Output Vital Signs (last 24 hours): Temp Pulse Resp BP Pulse Ox 97.5 F L 55 L 18 136/70 98 06/27/16 08:18 06/27/16 08:18 06/27/16 08:18 06/27/16 08:18 06/27/16 08:18 - Medications Medications: Current Medications Aspirin (Ecotrin) 81 mg PO DAILY [facility] Last Admin: 06/27/16 08:31 Dose: 81 mg Atorvastatin Calcium (Lipitor) 20 mg PO DAILY [facility] Last Admin: 06/27/16 08:32 Dose: 20 mg Bisoprolol Fumarate (Zebeta) 2.5 mg PO DAILY [facility] Last Admin: 06/27/16 08:32 Dose: 2.5 mg Hydroxyzine HCl (Atarax) 25 mg PO Q6 PRN PRN Reason: Itching / Pruritus - Labs Labs: 06/27/16 06:20 06/27/16 06:30 PT 11.4 SECONDS (9.6-11.2) H 06/23/16 17:57 INR 1.10 (0.92-1.08) H 06/23/16 17:57 APTT 28.9 SECONDS (23.3-32.5) 06/23/16 17:57 - Constitutional Appears: No Acute Distress - ENT Exam ENT Exam: Mucous Membranes Moist - Respiratory Exam Respiratory Exam: absent: Chest Wall Tenderness - Cardiovascular Exam Cardiovascular Exam: absent: JVD, Rubs - GI/Abdominal Exam GI & Abdominal Exam: Normal Bowel Sounds. absent: Guarding - Extremities Exam Extremities Exam: absent: Calf Tenderness - Back Exam Back Exam: absent: CVA tenderness (L), CVA tenderness (R) - Neurological Exam Neurological Exam: Awake Assessment and Plan (1) SDH (subdural hematoma) Status: Acute (2) Renal injury Assessment & Plan: Most likely acute kidney injury also noted serum potassium going up 5.3 please repeat F continue to rise patient will need Kayexalate. Continue monitoring kidney function and electrolyte Gentle hydration Status: Acute
--- NOTE | 2016-06-27 12:19 | PQF GENQUE ---
Dr. Sykes, Please clarify the stage of the chronic kidney disease: Stage 1 Stage 2 (mild) Stage 3 (moderate) Stage 4 (severe) Stage 5 Other (please specify) Unable to determine Unknown -BUN:60->55;creatinine:2.4->2.3;GFR (Af Amer/Non-Af Amer):32/26->34/28; see EMR for all renal labs -06/25: renal consult:Acute on chronic renal failure. Renal function is stable This form is a permanent part of the medical record Clarification of your documentation is requested to better reflect the severity of illness and intensity of treatment of your patient. Indicators present [] Specify: [] [] Specify: [] [] Specify: [] [] Specify: [] Location in the medical record that reflects the above clinical findings: [] Treatment Provided: [] PHYSICIAN'S RESPONSE Based on your medical judgment of the clinical indicators outlined above please clarify the following: [] Practitioner response [] If unable to determine, please check the box, sign and date. Present On Admission (POA) Indicator: [] Present at the time of admission [] Not present at the time of admission [] Clinically Undetermined In responding to this query, please exercise your independent professional judgment. The fact that a question is asked does not imply that any particular answer is desired or expected. Thank you for your clarification on this documentation. If you have any questions please call. * Thank you, Mar Way RN ext. #[phone] MTDD
--- NOTE | 2016-06-27 12:37 | PN ---
DATE: 06/27/2016 The patient denies any dizziness or chest pain. PHYSICAL EXAMINATION: VITAL SIGNS: Blood pressure 136/70, heart rate 55, temperature 97.5. HEENT: Left eyebrow ecchymosis. NECK: No JVD. CHEST: Bilateral rhonchi. HEART: S1, S2 regular. EXTREMITIES: No edema. LABORATORIES: Today's hemoglobin and hematocrit 12.1 and 37.4, white count and platelet count are wi thin normal limit. Today's potassium level is 5.9, BUN and creatinine are 55 and 2.3. ASSESSMENT: 1. Status post a fall. 2. Chronic renal insufficiency. 3. Borderline troponin elevation. 4. Acute on top of chronic subdural hematoma. RECOMMENDATIONS: Continue aspirin 81 mg once a day, Lipitor 20 mg once a day, Zebeta 2.5 mg once a d ay. May discontinue telemetry. Shaka Sawyer MD cc: [id number] TT: 06/27/2016 12:36:45 Confirmation # [id number] Dictation # [id number]
--- NOTE | 2016-06-27 13:09 | CP.PCM.PN ---
<Tami Zelaya - Last Filed: 06/27/16 13:15> Subjective - Date & Time of Evaluation Date of Evaluation: 06/27/16 Time of Evaluation: 07:20 - Subjective Subjective: Pt seen and examined at bedside, denies any pain, sob, headache, cough, nausea or vomiting. does not have any complaints Objective - Vital Signs/Intake and Output Vital Signs (last 24 hours): Temp Pulse Resp BP Pulse Ox 97.5 F L 55 L 18 136/70 98 06/27/16 08:18 06/27/16 08:18 06/27/16 08:18 06/27/16 08:18 06/27/16 08:18 - Medications Medications: Current Medications Aspirin (Ecotrin) 81 mg PO DAILY [facility] Last Admin: 06/27/16 08:31 Dose: 81 mg Atorvastatin Calcium (Lipitor) 20 mg PO DAILY [facility] Last Admin: 06/27/16 08:32 Dose: 20 mg Bisoprolol Fumarate (Zebeta) 2.5 mg PO DAILY [facility] Last Admin: 06/27/16 08:32 Dose: 2.5 mg Hydroxyzine HCl (Atarax) 25 mg PO Q6 PRN PRN Reason: Itching / Pruritus - Labs Labs: 06/27/16 06:20 06/27/16 06:30 PT 11.4 SECONDS (9.6-11.2) H 06/23/16 17:57 INR 1.10 (0.92-1.08) H 06/23/16 17:57 APTT 28.9 SECONDS (23.3-32.5) 06/23/16 17:57 - Constitutional Appears: No Acute Distress - Eye Exam Eye Exam: Normal appearance - ENT Exam ENT Exam: Mucous Membranes Moist - Respiratory Exam Respiratory Exam: Clear to Ausculation Bilateral, NORMAL BREATHING PATTERN. absent: Rhonchi, Wheezes - Cardiovascular Exam Cardiovascular Exam: REGULAR RHYTHM, +S1, +S2 - GI/Abdominal Exam GI & Abdominal Exam: Soft, Normal Bowel Sounds. absent: Tenderness - Extremities Exam Extremities Exam: absent: Calf Tenderness - Neurological Exam Neurological Exam: Alert, Awake Assessment and Plan - Assessment and Plan (Free Text) Assessment: 76 y/o male with h/o Cerebral palsy with gait disturbance admitted Plan: Subdural hematoma neurosurgery recommendations appreciated monitor constipation bowel regime ordered skin lesions- Scabies treated with permethrin, off isolation SHUKRI possibly acute on chronic IVF renal dosing of medication nephro consult:recommendations appreciated Elevated troponins likely renal origin patient had possible previous inferior infarct last admission; patient stable; no acute cardiac problem likely Cardio on board: Dr Sawyer recommendations appreciated diet as ordered DVT prophylaxis- SCDs Discharge Disposition : pt is medically stable for discharge; social workers on case to work out placement <Edgardo Sykes - Last Filed: 07/09/16 11:52> Objective - Vital Signs/Intake and Output Vital Signs (last 24 hours): Temp Pulse Resp BP Pulse Ox 97.5 F L 82 18 119/68 96 07/04/16 16:18 07/04/16 16:18 07/04/16 16:18 07/04/16 16:18 07/04/16 16:18 - Labs Labs: 07/01/16 06:10 07/01/16 06:10 PT 11.4 SECONDS (9.6-11.2) H 06/23/16 17:57 INR 1.10 (0.92-1.08) H 06/23/16 17:57 APTT 28.9 SECONDS (23.3-32.5) 06/23/16 17:57 Assessment and Plan - Assessment and Plan (Free Text) Assessment: Patient was personally seen and examined by me in rounds with residents. Available labs and diagnostic data reviewed. Case, Patient's condition and management plan discussed with residents in rounds. Agree with resident's documentation. Plan: As ordered. Edgardo Sykes MD
[2016-06-28 07:27] LABS: CALCIUM 8.4 mg/dL (8.4-10.2); POTASSIUM 4.8 MMOL/L (3.6-5.0)
--- NOTE | 2016-06-28 08:32 | PN ---
DATE: 06/28/2016 The patient seen and examined. Interim events noted. Consults noted and appreciated. The patient r emains in progressive care unit on telemetry monitoring. The patient feels okay. ____ complaint, al though patient is not a good historian. PHYSICAL EXAMINATION: GENERAL: The patient is in no acute distress. VITAL SIGNS: Stable. Physical exam is essentially unchanged. HEART: S1, S2 normal, regular. LUNGS: Good bilateral air entry. ABDOMEN: Soft, nontender. EXTREMITIES: No edema, no calf swelling, no tenderness, no acute ischemia. CENTRAL NERVOUS SYSTEM: Essentially unchanged. DIAGNOSTIC DATA: Available diagnostic data reviewed. Overall, patient's general medical condition is stable. Telemetry monitoring does not reveal signifi cant arrhythmias. PLAN: As ordered. Edgardo Sykes MD cc: [id number] TT: 06/28/2016 08:32:06 Confirmation # [id number] Dictation # [id number] tn
--- NOTE | 2016-06-28 12:48 | CP.PCM.PN ---
Subjective - Date & Time of Evaluation Date of Evaluation: 06/28/16 Time of Evaluation: 12:00 - Subjective Subjective: Comfortable on bed Objective - Vital Signs/Intake and Output Vital Signs (last 24 hours): Temp Pulse Resp BP Pulse Ox 97.7 F 56 L 18 101/54 L 97 06/28/16 12:30 06/28/16 12:30 06/28/16 12:30 06/28/16 12:30 06/28/16 12:30 - Medications Medications: Current Medications Aspirin (Ecotrin) 81 mg PO DAILY [facility] Last Admin: 06/28/16 08:59 Dose: 81 mg Atorvastatin Calcium (Lipitor) 20 mg PO DAILY [facility] Last Admin: 06/28/16 08:58 Dose: 20 mg Bisoprolol Fumarate (Zebeta) 2.5 mg PO DAILY [facility] Last Admin: 06/28/16 08:59 Dose: 2.5 mg Hydroxyzine HCl (Atarax) 25 mg PO Q6 PRN PRN Reason: Itching / Pruritus - Labs Labs: 06/27/16 06:20 06/28/16 06:00 PT 11.4 SECONDS (9.6-11.2) H 06/23/16 17:57 INR 1.10 (0.92-1.08) H 06/23/16 17:57 APTT 28.9 SECONDS (23.3-32.5) 06/23/16 17:57 - Respiratory Exam Respiratory Exam: NORMAL BREATHING PATTERN Additional comments: Lungs clear - Cardiovascular Exam Cardiovascular Exam: REGULAR RHYTHM - Extremities Exam Additional comments: No edema - Neurological Exam Neurological Exam: Alert Additional comments: significant expressive dysarthria Assessment and Plan - Assessment and Plan (Free Text) Assessment: CKD stage 1V. Renal function is stable Cerebral palsy Chronic SDH Plan: Continue to monitor renal function PTH & phos
--- NOTE | 2016-06-28 13:32 | PN ---
DATE: 06/28/2016 The patient denies any dizziness, chest pain or headache. The patient's heart rate on the monitor is in upper 50s. PHYSICAL EXAMINATION: VITAL SIGNS: Blood pressure 101/54, heart rate 56, temperature 97.7, the lowest documented heart rat e since yesterday is 50. HEENT: Left eyebrow ecchymosis. NECK: No JVD. CHEST: Clear. HEART: S1, S2, regular. EXTREMITIES: No edema. LABORATORIES: Today's SMA-7: Sodium 141, potassium 4.8, chloride 109, CO2 23, glucose 81, BUN 53, c reatinine 2.2. ASSESSMENT: 1. Status post fall. 2. Borderline troponin elevation. 3. Acute on chronic subdural hematoma. 4. Chronic renal insufficiency. 5. Hypertension. RECOMMENDATIONS: Continue current aspirin 81 mg once a day, Lipitor at 20 mg once a day. Discontinu e Zebeta for now. Shaka Sawyer MD cc: [id number] TT: 06/28/2016 13:31:41 Confirmation # [id number] Dictation # [id number] tn
--- NOTE | 2016-06-29 07:50 | PN ---
DATE: 06/29/2016 The patient seen and examined. Interim events noted. Consults noted, appreciated. Nephrology valo elias and interventions noted and appreciated. The patient remains in progressive care unit on telemet ry monitoring. The patient is awake, responsive, feels okay. Denies any specific complaint. No trixie st pain, no shortness of breath. PHYSICAL EXAMINATION: GENERAL: The patient is in no acute distress. VITAL SIGNS: Stable. HEART: S1, S2 normal, regular. LUNGS: Good bilateral air entry. ABDOMEN: Soft, nontender. EXTREMITIES: No edema, no calf swelling, no tenderness, no acute ischemia. CENTRAL NERVOUS SYSTEM: Essentially unchanged. DIAGNOSTIC DATA: Available reviewed. Telemetry monitoring does not reveal significant arrhythmia. Creatinine level remains elevated consistent with chronic renal insufficiency. Overall, patient is medically stable. PLAN: As ordered. Edgardo Sykes MD cc: [id number] TT: 06/29/2016 07:49:22 Confirmation # [id number] Dictation # [id number] en
--- NOTE | 2016-06-29 12:20 | CP.PCM.PN ---
Subjective - Date & Time of Evaluation Date of Evaluation: 06/29/16 Time of Evaluation: 12:00 - Subjective Subjective: No acute distress Alert & comfortab;e Objective - Vital Signs/Intake and Output Vital Signs (last 24 hours): Temp Pulse Resp BP Pulse Ox 97.3 F L 50 L 18 128/75 97 06/29/16 08:00 06/29/16 09:00 06/29/16 08:00 06/29/16 08:00 06/29/16 08:00 - Medications Medications: Current Medications Aspirin (Ecotrin) 81 mg PO DAILY [facility] Last Admin: 06/29/16 08:39 Dose: 81 mg Atorvastatin Calcium (Lipitor) 20 mg PO DAILY [facility] Last Admin: 06/29/16 08:39 Dose: 20 mg Hydroxyzine HCl (Atarax) 25 mg PO Q6 PRN PRN Reason: Itching / Pruritus - Labs Labs: 06/27/16 06:20 06/28/16 06:00 PT 11.4 SECONDS (9.6-11.2) H 06/23/16 17:57 INR 1.10 (0.92-1.08) H 06/23/16 17:57 APTT 28.9 SECONDS (23.3-32.5) 06/23/16 17:57 - Respiratory Exam Additional comments: Lungs clear - Cardiovascular Exam Cardiovascular Exam: REGULAR RHYTHM Assessment and Plan - Assessment and Plan (Free Text) Assessment: CKD kidney function is stable Continue to monitor
--- NOTE | 2016-06-29 14:55 | PN ---
DATE: 06/29/2016 The patient denies any chest pain or shortness of breath. The patient denies any dizziness or headac he. PHYSICAL EXAMINATION: VITAL SIGNS: Blood pressure 110/55, heart rate 49, temperature 97.5, respirations 18. HEENT: Normocephalic. NECK: No JVD. CHEST: Clear. HEART: S1, S2 regular. EXTREMITIES: No edema. LABORATORIES: Yesterday's BUN and creatinine were 53 and 2.2. ASSESSMENT: 1. Acute on top of chronic subdural hematoma. 2. Sinus bradycardia. 3. Borderline troponin elevation. 4. Chronic insufficiency. RECOMMENDATIONS: Continue aspirin 81 mg once a day, Lipitor 20 mg once a day, Atarax 25 mg q. 6 hour s. Obtain a TSH level. Shaka Sawyer MD cc: [id number] TT: 06/29/2016 14:55:09 Confirmation # [id number] Dictation # [id number] an
--- NOTE | 2016-06-30 09:44 | PN ---
DATE: 06/30/2016 The patient seen and examined. Interim events noted. The patient remains in progressive care unit. The patient feels okay. No specific complaint of chest pain or shortness of breath. PHYSICAL EXAMINATION: GENERAL: The patient is in no acute distress. VITAL SIGNS: Stable. HEART: S1, S2 normal, regular. LUNGS: Good bilateral air entry. ABDOMEN: Soft, nontender. EXTREMITIES: No edema, no calf swelling, no tenderness, no acute ischemia. CENTRAL NERVOUS SYSTEM: Essentially unchanged. DIAGNOSTIC DATA: Available diagnostic data reviewed. Telemetry monitoring does not reveal significa nt arrhythmia. Overall, the patient's general medical condition is stable and improving. The patient is awaiting tr ansfer to subacute rehabilitation. PLAN: As ordered. Case and plan discussed with patient. Edgardo Sykes MD cc: [id number] TT: 06/30/2016 09:43:16 Confirmation # [id number] Dictation # [id number] mark anthony
[2016-06-30] MEDS ORDERED: Permethrin 5% CREAM TOP ONE (10:39)
--- NOTE | 2016-06-30 10:55 | CP.PCM.PN ---
Subjective - Date & Time of Evaluation Date of Evaluation: 06/30/16 Time of Evaluation: 10:53 - Subjective Subjective: No new event reported overnight Vital signs stable No significant complaining Chest clear Heart no rubs Abdomen soft Extremity no edema Impression and plan Stable kidney function serum creatinine around 1.7 with an acute kidney injury that has been improving slowly to keep monitoring. Patient may need ultrasound of the kidney if he is going home it could be done as outpatient if not we will fluid why he is waiting to be discharged. Objective - Vital Signs/Intake and Output Vital Signs (last 24 hours): Temp Pulse Resp BP Pulse Ox 97.6 F 54 L 21 112/66 98 06/30/16 05:00 06/30/16 05:00 06/30/16 05:00 06/30/16 05:00 06/30/16 05:00 - Medications Medications: Current Medications Aspirin (Ecotrin) 81 mg PO DAILY [facility] Last Admin: 06/30/16 08:35 Dose: 81 mg Atorvastatin Calcium (Lipitor) 20 mg PO DAILY [facility] Last Admin: 06/30/16 08:35 Dose: 20 mg Hydroxyzine HCl (Atarax) 25 mg PO Q6 PRN PRN Reason: Itching / Pruritus Permethrin (Permethrin 5% Cream) 1 applic TOP ONCE ONE Stop: 06/30/16 10:40 - Labs Labs: 06/27/16 06:20 06/28/16 06:00 PT 11.4 SECONDS (9.6-11.2) H 06/23/16 17:57 INR 1.10 (0.92-1.08) H 06/23/16 17:57 APTT 28.9 SECONDS (23.3-32.5) 06/23/16 17:57 Assessment and Plan (1) SDH (subdural hematoma) Status: Acute (2) Renal injury Status: Acute
--- NOTE | 2016-06-30 12:29 | PN ---
DATE: 06/30/2016 The patient denies dizziness, headache, blurry vision, or chest pain. PHYSICAL EXAMINATION: VITAL SIGNS: Blood pressure 112/66, heart rate 54, temperature 97.6, respirations 21. HEENT: Left eyebrow ecchymosis. NECK: No JVD. CHEST: Clear. HEART: S1, S2 regular. EXTREMITIES: No edema. ASSESSMENT: 1. Acute on top of chronic subdural hematoma. 2. Borderline troponin elevation. 3. Chronic renal insufficiency. 4. Sinus bradycardia. RECOMMENDATIONS: Continue current aspirin 81 mg once a day, Lipitor 20 mg once a day, Atarax 25 mg q . 6 hours p.r.n. Obtain 12-lead EKG today, and if normal, he will discontinue telemetry. Shaka Sawyer MD cc: [id number] TT: 06/30/2016 12:28:53 Confirmation # [id number] Dictation # [id number] barbara
--- NOTE | 2016-06-30 17:11 | CARD ---
APPROVED REPORT EKG Measurement Heart [id number] AR 180P-5 [id number] <Conclusion> Sinus bradycardia Otherwise normal ECG
[2016-07-01 07:13] LABS: HEMATOCRIT 31.7 % (35.0-51.0); MEAN CELL VOLUME 98.2 fl (80.0-94.0); MEAN CORPUSCULAR HEMOGLOBIN 33.3 pg (27.0-31.0); MEAN CORPUSCULAR HGB CONC 33.9 g/dL (33.0-37.0); RED CELL DISTRIBUTION WIDTH 13.6 % (11.5-14.5); WHITE BLOOD COUNT 5.8 K/uL (4.8-10.8)
[2016-07-01 07:38] LABS: ALB/GLOB RATIO 0.9 (1.0-2.1); BILIRUBIN,TOTAL 0.3 mg/dl (0.2-1.3); CALCIUM 8.4 mg/dL (8.4-10.2); TOTAL PROTEIN 5.2 G/DL (6.3-8.2)
--- NOTE | 2016-07-01 11:23 | CP.PCM.PN ---
<Tami Zelaya - Last Filed: 07/01/16 11:23> Subjective - Date & Time of Evaluation Date of Evaluation: 07/01/16 Time of Evaluation: 07:40 - Subjective Subjective: pt seen and examined at bedside this morning, cough has improved, he feels much better. No complaints Objective - Vital Signs/Intake and Output Vital Signs (last 24 hours): Temp Pulse Resp BP Pulse Ox 97.7 F 58 L 20 118/62 94 L 07/01/16 08:18 07/01/16 08:18 07/01/16 08:18 07/01/16 08:18 07/01/16 08:18 - Medications Medications: Current Medications Aspirin (Ecotrin) 81 mg PO DAILY [facility] Last Admin: 07/01/16 08:49 Dose: 81 mg Atorvastatin Calcium (Lipitor) 20 mg PO DAILY [facility] Last Admin: 07/01/16 08:49 Dose: 20 mg Hydroxyzine HCl (Atarax) 25 mg PO Q6 PRN PRN Reason: Itching / Pruritus - Labs Labs: 07/01/16 06:10 07/01/16 06:10 PT 11.4 SECONDS (9.6-11.2) H 06/23/16 17:57 INR 1.10 (0.92-1.08) H 06/23/16 17:57 APTT 28.9 SECONDS (23.3-32.5) 06/23/16 17:57 - Constitutional Appears: No Acute Distress - Head Exam Head Exam: NORMOCEPHALIC - Eye Exam Eye Exam: Normal appearance - ENT Exam ENT Exam: Mucous Membranes Moist - Respiratory Exam Respiratory Exam: Clear to Ausculation Bilateral, NORMAL BREATHING PATTERN. absent: Wheezes - Cardiovascular Exam Cardiovascular Exam: REGULAR RHYTHM, +S1, +S2 - GI/Abdominal Exam GI & Abdominal Exam: Soft, Normal Bowel Sounds - Extremities Exam Extremities Exam: absent: Calf Tenderness - Neurological Exam Neurological Exam: Awake Assessment and Plan - Assessment and Plan (Free Text) Assessment: 76 y/o male with h/o Cerebral palsy with gait disturbance admitted Plan: Subdural hematoma neurosurgery recommendations appreciated monitor constipation bowel regime ordered skin lesions- Scabies treated with permethrin, off isolation SHUKRI possibly acute on chronic IVF renal dosing of medication nephro consult:recommendations appreciated Elevated troponins likely renal origin patient had possible previous inferior infarct last admission; patient stable; no acute cardiac problem likely Cardio on board: Dr Sawyer recommendations appreciated diet as ordered DVT prophylaxis- SCDs Discharge Disposition : pt is medically stable for discharge; placement found, will be discharged in the AM <Edgardo Sykes - Last Filed: 07/09/16 11:55> Objective - Vital Signs/Intake and Output Vital Signs (last 24 hours): Temp Pulse Resp BP Pulse Ox 97.5 F L 82 18 119/68 96 07/04/16 16:18 07/04/16 16:18 07/04/16 16:18 07/04/16 16:18 07/04/16 16:18 - Labs Labs: 07/01/16 06:10 07/01/16 06:10 PT 11.4 SECONDS (9.6-11.2) H 06/23/16 17:57 INR 1.10 (0.92-1.08) H 06/23/16 17:57 APTT 28.9 SECONDS (23.3-32.5) 06/23/16 17:57 Assessment and Plan - Assessment and Plan (Free Text) Assessment: Patient was personally seen and examined by me in rounds with residents. Available labs and diagnostic data reviewed. Case, Patient's condition and management plan discussed with residents in rounds. Agree with resident's documentation. Plan: As ordered. Edgardo Sykes MD
--- NOTE | 2016-07-01 15:27 | CP.PCM.PN ---
Subjective - Date & Time of Evaluation Date of Evaluation: 07/01/16 Time of Evaluation: 15:25 - Subjective Subjective: seen and examined no complaints Objective - Vital Signs/Intake and Output Vital Signs (last 24 hours): Temp Pulse Resp BP Pulse Ox 98.0 F 56 L 19 114/65 95 07/01/16 12:41 07/01/16 12:41 07/01/16 12:41 07/01/16 12:41 07/01/16 12:41 - Medications Medications: Current Medications Aspirin (Ecotrin) 81 mg PO DAILY [facility] Last Admin: 07/01/16 08:49 Dose: 81 mg Atorvastatin Calcium (Lipitor) 20 mg PO DAILY [facility] Last Admin: 07/01/16 08:49 Dose: 20 mg Hydroxyzine HCl (Atarax) 25 mg PO Q6 PRN PRN Reason: Itching / Pruritus - Labs Labs: 07/01/16 06:10 07/01/16 06:10 PT 11.4 SECONDS (9.6-11.2) H 06/23/16 17:57 INR 1.10 (0.92-1.08) H 06/23/16 17:57 APTT 28.9 SECONDS (23.3-32.5) 06/23/16 17:57 - Constitutional Appears: Non-toxic - Head Exam Head Exam: ATRAUMATIC - Eye Exam Eye Exam: Normal appearance - ENT Exam Additional comments: poor dentition - Respiratory Exam Respiratory Exam: NORMAL BREATHING PATTERN - Cardiovascular Exam Cardiovascular Exam: +S1, +S2 - GI/Abdominal Exam GI & Abdominal Exam: Normal Bowel Sounds - Extremities Exam Additional comments: no edema - Psychiatric Exam Psychiatric exam: Flat Affect - Skin Skin Exam: Normal Color Assessment and Plan - Assessment and Plan (Free Text) Assessment: arf / subdural hematoma/ olayinka remains stable will continue to follow
--- NOTE | 2016-07-01 17:31 | PN ---
DATE: 07/01/2016 SUBJECTIVE: The patient denies any dizziness, headache or blurry vision. He denies any chest pain. PHYSICAL EXAMINATION: VITAL SIGNS: Blood pressure 114/65, heart rate , temperature 98. The lowest heart rate reporte d is 53 at 5:00 a.m. HEENT: Left eye ecchymosis. NECK: No JVD. CHEST: Clear. HEART: Sounds are regular. EXTREMITIES: No edema. LABORATORIES: Hemoglobin and hematocrit 10.8 and 31.7; white count and platelet count are within nor mal limits. Today's BUN and creatinine are 46 and 2.3. AST and ALT are 340 and 401, respectively. EKG done yesterday revealed sinus bradycardia at a rate of 56. ASSESSMENT: 1. Acute on top of chronic subdural hematoma. 2. Mild sinus bradycardia. 3. Status post a fall. RECOMMENDATIONS: Continue current aspirin at 81 mg once a day and Lipitor at 20 mg once a day. Disc ontinue telemetry. Shaka Sawyer MD cc: [id number] TT: 07/01/2016 13:13:53 Confirmation # [id number] Dictation # [id number] 07/01/2016 16:31:06
[2016-07-02 11:40] LABS: ALB/GLOB RATIO 0.9 (1.0-2.1); BILIRUBIN,TOTAL 0.2 mg/dl (0.2-1.3); TOTAL PROTEIN 5.2 G/DL (6.3-8.2)
--- NOTE | 2016-07-02 15:06 | PN ---
DATE: 07/02/2016 SUBJECTIVE: The patient denies any chest pain or shortness of breath. PHYSICAL EXAMINATION: VITAL SIGNS: Blood pressure 108/59, heart rate 57, temperature 97.7, respirations 18. HEENT: Left eyebrow ecchymosis is resolving. NECK: No JVD. CHEST: Clear. HEART: S1, S2 regular. EXTREMITIES: No edema. LABORATORIES: Today's AST and ALT are 219 and 328 respectively, a slight improvement compared to yes terday. ASSESSMENT: 1. Borderline troponin elevation, unlikely represents acute myocardial injury. 2. Acute on top of chronic subdural hematoma. 3. Chronic renal insufficiency. 4. Anemia. 5. Elevated liver enzymes. RECOMMENDATIONS: Continue current aspirin 81 mg once a day. I agree with discontinuation of Lipitor therapy. Shaka Sawyer MD cc: [id number] TT: 07/02/2016 15:06:06 Confirmation # [id number] Dictation # [id number] mn
--- NOTE | 2016-07-02 16:05 | CP.PCM.PN ---
<Tami Zelaya - Last Filed: 07/02/16 16:06> Subjective - Date & Time of Evaluation Date of Evaluation: 07/02/16 Time of Evaluation: 07:05 - Subjective Subjective: Pt seen and examined at bedside this morning, does not have any complaints. states he is doing fine Objective - Vital Signs/Intake and Output Vital Signs (last 24 hours): Temp Pulse Resp BP Pulse Ox 97.4 F L 55 L 20 135/73 97 07/02/16 16:01 07/02/16 16:01 07/02/16 16:01 07/02/16 16:01 07/02/16 16:01 - Medications Medications: Current Medications Aspirin (Ecotrin) 81 mg PO DAILY [facility] Last Admin: 07/02/16 10:18 Dose: 81 mg Hydroxyzine HCl (Atarax) 25 mg PO Q6 PRN PRN Reason: Itching / Pruritus - Labs Labs: 07/01/16 06:10 07/01/16 06:10 PT 11.4 SECONDS (9.6-11.2) H 06/23/16 17:57 INR 1.10 (0.92-1.08) H 06/23/16 17:57 APTT 28.9 SECONDS (23.3-32.5) 06/23/16 17:57 - Constitutional Appears: Non-toxic, No Acute Distress - Head Exam Head Exam: NORMOCEPHALIC - Eye Exam Eye Exam: Normal appearance - ENT Exam ENT Exam: Mucous Membranes Moist - Respiratory Exam Respiratory Exam: Clear to Ausculation Bilateral, NORMAL BREATHING PATTERN. absent: Rhonchi, Wheezes - Cardiovascular Exam Cardiovascular Exam: REGULAR RHYTHM, +S1, +S2 - GI/Abdominal Exam GI & Abdominal Exam: Soft, Normal Bowel Sounds - Neurological Exam Neurological Exam: Alert, Awake Assessment and Plan - Assessment and Plan (Free Text) Assessment: 76 y/o male with h/o Cerebral palsy with gait disturbance admitted Plan: elevated LFts (new issue) was recently started on a statin statin d/c will monitor Subdural hematoma neurosurgery recommendations appreciated monitor constipation bowel regime ordered skin lesions- Scabies treated with permethrin, off isolation SHUKRI possibly acute on chronic IVF renal dosing of medication nephro consult:recommendations appreciated Elevated troponins likely renal origin patient had possible previous inferior infarct last admission; patient stable; no acute cardiac problem likely Cardio on board: Dr Sawyer recommendations appreciated diet as ordered DVT prophylaxis- SCDs Discharge Disposition : pt is medically stable for discharge; placement found at [facility], awaiting insurance approval then discharge <Edgardo Sykes - Last Filed: 07/09/16 11:57> Objective - Vital Signs/Intake and Output Vital Signs (last 24 hours): Temp Pulse Resp BP Pulse Ox 97.5 F L 82 18 119/68 96 07/04/16 16:18 07/04/16 16:18 07/04/16 16:18 07/04/16 16:18 07/04/16 16:18 - Labs Labs: 07/01/16 06:10 07/01/16 06:10 PT 11.4 SECONDS (9.6-11.2) H 06/23/16 17:57 INR 1.10 (0.92-1.08) H 06/23/16 17:57 APTT 28.9 SECONDS (23.3-32.5) 06/23/16 17:57 Assessment and Plan - Assessment and Plan (Free Text) Assessment: Patient was personally seen and examined by me in rounds with residents. Available labs and diagnostic data reviewed. Case, Patient's condition and management plan discussed with residents in rounds. Agree with resident's documentation. Plan: As ordered. Edgardo Sykes MD
--- NOTE | 2016-07-02 17:05 | CP.PCM.PN ---
Subjective - Date & Time of Evaluation Date of Evaluation: 07/02/16 Time of Evaluation: 04:45 - Subjective Subjective: Comfortable in bed Objective - Vital Signs/Intake and Output Vital Signs (last 24 hours): Temp Pulse Resp BP Pulse Ox 97.4 F L 55 L 20 135/73 97 07/02/16 16:01 07/02/16 16:01 07/02/16 16:01 07/02/16 16:01 07/02/16 16:01 - Medications Medications: Current Medications Aspirin (Ecotrin) 81 mg PO DAILY [facility] Last Admin: 07/02/16 10:18 Dose: 81 mg Hydroxyzine HCl (Atarax) 25 mg PO Q6 PRN PRN Reason: Itching / Pruritus - Labs Labs: 07/01/16 06:10 07/01/16 06:10 PT 11.4 SECONDS (9.6-11.2) H 06/23/16 17:57 INR 1.10 (0.92-1.08) H 06/23/16 17:57 APTT 28.9 SECONDS (23.3-32.5) 06/23/16 17:57 - Respiratory Exam Respiratory Exam: NORMAL BREATHING PATTERN Additional comments: Lungs clear - Cardiovascular Exam Cardiovascular Exam: REGULAR RHYTHM - Extremities Exam Additional comments: No edema Assessment and Plan - Assessment and Plan (Free Text) Assessment: CKD. Creat is stable K+ is controlled SDH Cerebral palsy Plan: Continue to monitor renal function
--- NOTE | 2016-07-02 18:42 | US ---
HISTORY: abnormal lfts COMPARISON: None. TECHNIQUE: Sonographic evaluation of the abdomen. FINDINGS: LIVER: Measures 15 cm. Mild increase echogenicity of the liver parenchyma. No mass. No intrahepatic bile duct dilatation. GALLBLADDER: Unremarkable. No gallstones. COMMON BILE DUCT: Measures 2.2 mm. No stones. No dilatation. PANCREAS: The pancreas obscured by overlying bowel gas. RIGHT KIDNEY: Measures 9.9 x 4.1 x 5.3cm. Normal echogenicity. No calculus, mass, or hydronephrosis. Small cyst seen at the right kidney. The largest cyst measures 1.7 x 1.3 x 1 centimeter. LEFT KIDNEY: Measures 9.2 x 4 x 4.7cm. Normal echogenicity. No calculus, mass, or hydronephrosis. 4.4 x 4.1 centimeter septated cyst seen at the mid to upper pole left kidney. There is also 2.2 centimeters cyst at the lower pole of the left kidney. . SPLEEN: Normal in size and contour. No mass. AORTA: Not clearly visualized due to overlying bowel gas. IVC: Not clearly visualized due to overlying bowel gas P OTHER FINDINGS: None. IMPRESSION: Mildly echogenic liver suggestive of mild hepatic steatosis. Cystic lesions in both kidneys larger on the left. The pancreas, abdominal aorta and the IVC are obscured by overlying bowel gas.
--- NOTE | 2016-07-03 11:34 | CP.PCM.PN ---
<Tami Zelaya - Last Filed: 07/03/16 11:38> Subjective - Date & Time of Evaluation Date of Evaluation: 07/03/16 Time of Evaluation: 07:10 - Subjective Subjective: pt seen and examined at side, does not have any complaints. nurses notes reviewed Objective - Vital Signs/Intake and Output Vital Signs (last 24 hours): Temp Pulse Resp BP Pulse Ox 97.4 F L 53 L 18 152/85 H 97 07/03/16 08:00 07/03/16 08:00 07/03/16 08:00 07/03/16 08:00 07/03/16 08:00 - Medications Medications: Current Medications Aspirin (Ecotrin) 81 mg PO DAILY ANGELO Last Admin: 07/03/16 09:46 Dose: 81 mg Hydroxyzine HCl (Atarax) 25 mg PO Q6 PRN PRN Reason: Itching / Pruritus - Labs Labs: 07/01/16 06:10 07/01/16 06:10 PT 11.4 SECONDS (9.6-11.2) H 06/23/16 17:57 INR 1.10 (0.92-1.08) H 06/23/16 17:57 APTT 28.9 SECONDS (23.3-32.5) 06/23/16 17:57 - Constitutional Appears: Non-toxic, No Acute Distress - Head Exam Head Exam: NORMOCEPHALIC - Eye Exam Eye Exam: Normal appearance - ENT Exam ENT Exam: Mucous Membranes Moist - Respiratory Exam Respiratory Exam: Clear to Ausculation Bilateral, NORMAL BREATHING PATTERN - GI/Abdominal Exam GI & Abdominal Exam: Soft, Normal Bowel Sounds - Extremities Exam Extremities Exam: absent: Calf Tenderness, Pedal Edema - Neurological Exam Neurological Exam: Alert, Awake Assessment and Plan - Assessment and Plan (Free Text) Assessment: 76 y/o male with h/o Cerebral palsy with gait disturbance admitted s/p fall and complaints of constipation Plan: elevated LFts was recently started on a statin abnormal ultrasound shows statin d/c will monitor Subdural hematoma neurosurgery recommendations appreciated monitor constipation bowel regime ordered skin lesions- Scabies treated with permethrin, off isolation SHUKRI possibly acute on chronic IVF renal dosing of medication nephro consult:recommendations appreciated Elevated troponins likely renal origin patient had possible previous inferior infarct last admission; patient stable; no acute cardiac problem likely Cardio on board: Dr Sawyer recommendations appreciated diet as ordered DVT prophylaxis- SCDs Discharge Disposition : pt is medically stable for discharge; placement found at [facility], awaiting insurance approval then discharge <Edgardo Sykes - Last Filed: 07/09/16 11:58> Objective - Vital Signs/Intake and Output Vital Signs (last 24 hours): Temp Pulse Resp BP Pulse Ox 97.5 F L 82 18 119/68 96 07/04/16 16:18 07/04/16 16:18 07/04/16 16:18 07/04/16 16:18 07/04/16 16:18 - Labs Labs: 07/01/16 06:10 07/01/16 06:10 PT 11.4 SECONDS (9.6-11.2) H 06/23/16 17:57 INR 1.10 (0.92-1.08) H 06/23/16 17:57 APTT 28.9 SECONDS (23.3-32.5) 06/23/16 17:57 Assessment and Plan - Assessment and Plan (Free Text) Assessment: Patient was personally seen and examined by me in rounds with residents. Available labs and diagnostic data reviewed. Case, Patient's condition and management plan discussed with residents in rounds. Agree with resident's documentation. Plan: As ordered. Edgardo Sykes MD
--- NOTE | 2016-07-03 14:11 | CP.PCM.PN ---
Subjective - Date & Time of Evaluation Date of Evaluation: 07/03/16 Time of Evaluation: 02:00 - Subjective Subjective: Chronic renal failure. Renal function is dtable Objective - Vital Signs/Intake and Output Vital Signs (last 24 hours): Temp Pulse Resp BP Pulse Ox 97.8 F 51 L 18 112/63 96 07/03/16 12:00 07/03/16 12:00 07/03/16 12:00 07/03/16 12:00 07/03/16 12:00 - Medications Medications: Current Medications Aspirin (Ecotrin) 81 mg PO DAILY ANGELO Last Admin: 07/03/16 09:46 Dose: 81 mg Hydroxyzine HCl (Atarax) 25 mg PO Q6 PRN PRN Reason: Itching / Pruritus - Labs Labs: 07/01/16 06:10 07/01/16 06:10 PT 11.4 SECONDS (9.6-11.2) H 06/23/16 17:57 INR 1.10 (0.92-1.08) H 06/23/16 17:57 APTT 28.9 SECONDS (23.3-32.5) 06/23/16 17:57 Assessment and Plan - Assessment and Plan (Free Text) Assessment: Acute on chronic kidney dis. Creat remains stable Cerebral palsy Chronic SDH Plan: Renal function is stable Monitor urine out put
--- NOTE | 2016-07-03 14:11 | PN ---
DATE: 07/03/2016 The patient denies chest pain or dizziness. PHYSICAL EXAMINATION: VITAL SIGNS: Blood pressure 112/63, heart rate 51, temperature 97.8 and respiration 18. HEENT: Left eyebrow ecchymosis. Left-sided scalp eschar, according to the patient, has been there f or years. NECK: No JVD. CHEST: Clear. HEART: S1, S2 regular. EXTREMITIES: No edema. ASSESSMENT: 1. Acute on top of chronic subdural hematoma. 2. Elevated liver enzymes. 3. Chronic renal insufficiency. 4. Borderline troponin elevation. RECOMMENDATIONS: Continue aspirin 81 mg once a day, Atarax 25 mg q. 6 hours. Consider initiating ph ysical therapy if cleared by neurologist. Shaka Sawyer MD cc: [id number] TT: 07/03/2016 14:10:23 Confirmation # [id number] Dictation # [id number] mn
[2016-07-04 08:56] VITALS: RESP 18
--- NOTE | 2016-07-04 10:56 | PN ---
DATE: 07/04/2016 The patient refuses to cooperate with leaving the bed according to the nurse. He prefers to stay in bed and he is incontinent. He denies any chest pain or shortness of breath. PHYSICAL EXAMINATION: VITAL SIGNS: Blood pressure 109/67, heart rate 61, temperature 97.6, respiration 18. HEENT: Pale conjunctivae, resolving left eyebrow ecchymosis. NECK: No JVD. CHEST: Clear. HEART: S1, S2 regular. ABDOMEN: Soft. EXTREMITIES: No edema. ASSESSMENT: 1. Borderline troponin elevation. 2. Acute on top of chronic subdural hematoma. 3. Chronic renal insufficiency. 4. Elevated liver enzymes. 5. Mild hepatic steatosis by ultrasound finding. RECOMMENDATIONS: Continue current aspirin 81 mg once a day, Atarax 25 mg q. 6 hours. The patient ca n be transferred to routine medical floor and physical therapy can be initiated from the cardiac poin t of view. Shaka Sawyer MD cc: [id number] TT: 07/04/2016 10:55:43 Confirmation # [id number] Dictation # [id number]
--- NOTE | 2016-07-04 14:33 | CP.PCM.PN ---
<Tami Zelaya - Last Filed: 07/04/16 14:34> Subjective - Date & Time of Evaluation Date of Evaluation: 07/04/16 Time of Evaluation: 07:10 - Subjective Subjective: Pt was seen and examined at bedside, does not have any complaints. no acute events overnight. still awaiting insurance approval for rehab placement Objective - Vital Signs/Intake and Output Vital Signs (last 24 hours): Temp Pulse Resp BP Pulse Ox 97.6 F 61 18 127/80 99 07/04/16 08:00 07/04/16 10:09 07/04/16 08:00 07/04/16 08:00 07/04/16 10:09 - Medications Medications: Current Medications Aspirin (Ecotrin) 81 mg PO DAILY ANGELO Last Admin: 07/04/16 09:33 Dose: 81 mg Hydroxyzine HCl (Atarax) 25 mg PO Q6 PRN PRN Reason: Itching / Pruritus - Labs Labs: 07/01/16 06:10 07/01/16 06:10 PT 11.4 SECONDS (9.6-11.2) H 06/23/16 17:57 INR 1.10 (0.92-1.08) H 06/23/16 17:57 APTT 28.9 SECONDS (23.3-32.5) 06/23/16 17:57 - Constitutional Appears: Non-toxic, No Acute Distress - Head Exam Head Exam: NORMOCEPHALIC - ENT Exam ENT Exam: Mucous Membranes Moist - Respiratory Exam Respiratory Exam: Clear to Ausculation Bilateral, NORMAL BREATHING PATTERN - Cardiovascular Exam Cardiovascular Exam: REGULAR RHYTHM, +S1, +S2 - GI/Abdominal Exam GI & Abdominal Exam: Soft, Normal Bowel Sounds - Extremities Exam Extremities Exam: absent: Pedal Edema - Neurological Exam Neurological Exam: Alert, Awake Assessment and Plan - Assessment and Plan (Free Text) Assessment: 76 y/o male with h/o Cerebral palsy with gait disturbance admitted s/p fall and complaints of constipation Plan: Subdural hematoma neurosurgery recommendations appreciated monitor constipation bowel regime ordered skin lesions- Scabies treated with permethrin, off isolation SHUKRI possibly acute on chronic IVF renal dosing of medication nephro consult:recommendations appreciated Elevated troponins likely renal origin patient had possible previous inferior infarct last admission; patient stable; no acute cardiac problem likely Cardio on board: Dr Sawyer recommendations appreciated diet as ordered DVT prophylaxis- SCDs Discharge Disposition : pt is medically stable for discharge; placement found at [facility], awaiting insurance approval then discharge <Edgardo Sykes - Last Filed: 07/09/16 12:00> Objective - Vital Signs/Intake and Output Vital Signs (last 24 hours): Temp Pulse Resp BP Pulse Ox 97.5 F L 82 18 119/68 96 07/04/16 16:18 07/04/16 16:18 07/04/16 16:18 07/04/16 16:18 07/04/16 16:18 - Labs Labs: 07/01/16 06:10 07/01/16 06:10 PT 11.4 SECONDS (9.6-11.2) H 06/23/16 17:57 INR 1.10 (0.92-1.08) H 06/23/16 17:57 APTT 28.9 SECONDS (23.3-32.5) 06/23/16 17:57 Assessment and Plan - Assessment and Plan (Free Text) Assessment: Patient was personally seen and examined by me in rounds with residents. Available labs and diagnostic data reviewed. Case, Patient's condition and management plan discussed with residents in rounds. Agree with resident's documentation. Plan: As ordered. Edgardo Sykes MD
[2016-07-04 16:19] VITALS: BP 119/68; PULSE 82; TEMP 97.5; O2SAT 96
--- NOTE | 2016-07-04 16:48 | CP.PCM.DIS ---
<Tami Zelaya - Last Filed: 07/04/16 16:46> Provider - Provider Date of Admission: 06/23/16 17:39 Attending physician: Edgardo Sykes MD Time Spent in preparation of Discharge (in minutes): 30 Diagnosis - Discharge Diagnosis (1) Constipation Status: Acute (2) SDH (subdural hematoma) Status: Acute Hospital Course - Lab Results Lab Results: Most Recent Lab Values WBC 5.8 K/uL (4.8-10.8) 07/01/16 06:10 RBC 3.23 Mil/uL (4.40-5.90) L 07/01/16 06:10 Hgb 10.8 g/dL (12.0-18.0) L 07/01/16 06:10 Hct 31.7 % (35.0-51.0) L 07/01/16 06:10 MCV 98.2 fl (80.0-94.0) H 07/01/16 06:10 MCH 33.3 pg (27.0-31.0) H 07/01/16 06:10 MCHC 33.9 g/dL (33.0-37.0) 07/01/16 06:10 RDW 13.6 % (11.5-14.5) 07/01/16 06:10 Plt Count 181 K/uL (130-400) 07/01/16 06:10 MPV 7.2 fl (7.2-11.7) 06/23/16 15:26 Neut % (Auto) 81.0 % (50.0-75.0) H 06/23/16 15:26 Lymph % (Auto) 8.4 % (20.0-40.0) L 06/23/16 15:26 [place] % (Auto) 8.6 % (0.0-10.0) 06/23/16 15:26 Eos % (Auto) 1.1 % (0.0-4.0) 06/23/16 15:26 Baso % (Auto) 0.9 % (0.0-2.0) 06/23/16 15:26 Neut # 8.5 K/uL (1.8-7.0) H 06/23/16 15:26 Lymph # 0.9 K/uL (1.0-4.3) L 06/23/16 15:26 [place] # 0.9 K/uL (0.0-0.8) H 06/23/16 15:26 Eos # 0.1 K/uL (0.0-0.7) 06/23/16 15:26 Baso # 0.1 K/uL (0.0-0.2) 06/23/16 15:26 Neutrophils % (Manual) 82 % (42-75) H 06/23/16 15:26 Band Neutrophils % 2 % (0-2) 06/23/16 15:26 Lymphocytes % (Manual) 5 % (20-50) L 06/23/16 15:26 Monocytes % (Manual) 8 % (0-10) 06/23/16 15:26 Eosinophils % (Manual) 2 % (0-7) 06/23/16 15:26 Basophils % (Manual) 1 % (0-2) 06/23/16 15:26 Toxic Granulation Present 06/23/16 15:26 Platelet Estimate Normal (NORMAL) 06/23/16 15:26 Anisocytosis (manual) Slight 06/23/16 15:26 Macrocytosis (manual) Slight 06/23/16 15:26 PT 11.4 SECONDS (9.6-11.2) H 06/23/16 17:57 INR 1.10 (0.92-1.08) H 06/23/16 17:57 APTT 28.9 SECONDS (23.3-32.5) 06/23/16 17:57 D-Dimer, Quantitative 2.56 mg/L FEU (0-0.50) H 06/25/16 15:08 Sodium 142 mmol/l (132-148) 07/01/16 06:10 Potassium 5.0 MMOL/L (3.6-5.0) 07/01/16 06:10 Chloride 107 mmol/L (98-107) 07/01/16 06:10 Carbon Dioxide 26 mmol/L (22-30) 07/01/16 06:10 Anion Gap 14 (10-20) 07/01/16 06:10 BUN 46 mg/dl (9-20) H 07/01/16 06:10 Creatinine 2.3 mg/dL (0.8-1.5) H 07/01/16 06:10 Est GFR ( Amer) 34 07/01/16 06:10 Est GFR (Non-Af Amer) 28 07/01/16 06:10 Random Glucose 80 mg/dL (75-110) 07/01/16 06:10 Calcium 8.4 mg/dL (8.4-10.2) 07/01/16 06:10 Phosphorus 3.5 mg/dl (2.5-4.5) 06/28/16 14:50 Total Bilirubin 0.2 mg/dl (0.2-1.3) 07/02/16 11:23 Direct Bilirubin 0.1 mg/ml (0.0-0.4) 07/02/16 11:23 AST 219 U/L (17-59) H D 07/02/16 11:23 ALT 328 U/L (21-72) H 07/02/16 11:23 Alkaline Phosphatase 79 U/L (38-126) 07/02/16 11:23 Troponin I 0.1050 ng/mL (0.00-0.120) 06/24/16 16:20 Total Protein 5.2 G/DL (6.3-8.2) L 07/02/16 11:23 Albumin 2.4 g/dL (3.5-5.0) L 07/02/16 11:23 Globulin 2.7 gm/dL (2.2-3.9) 07/02/16 11:23 Albumin/Globulin Ratio 0.9 (1.0-2.1) L 07/02/16 11:23 TSH 3rd Generation 3.91 mIU/ML (0.46-4.68) 06/29/16 19:56 PTH Intact Whole Molec 94 pg/mL (14-64) H 06/28/16 14:50 - Hospital Course Hospital Course: pt was admitted for subdural hematoma and constipation, neurosurgery was consulted, recommended monitoring for any acute changes. Remain stable; being discharged to [facility] Discharge Exam - Head Exam Head Exam: NORMOCEPHALIC - Eye Exam Eye Exam: Normal appearance - ENT Exam ENT Exam: Mucous Membranes Moist - Respiratory Exam Respiratory Exam: NORMAL BREATHING PATTERN - Cardiovascular Exam Cardiovascular Exam: REGULAR RHYTHM, +S1, +S2 - GI/Abdominal Exam GI & Abdominal Exam: Normal Bowel Sounds - Neurological Exam Neurological exam: Alert Discharge Plan - Follow Up Plan Condition: FAIR Disposition: TRANSF TO SNF <Sykes,Edgardo K - Last Filed: 07/09/16 12:01> Provider - Provider Date of Admission: 06/23/16 17:39 Attending physician: Edgardo Sykes MD Hospital Course - Lab Results Lab Results: Most Recent Lab Values WBC 5.8 K/uL (4.8-10.8) 07/01/16 06:10 RBC 3.23 Mil/uL (4.40-5.90) L 07/01/16 06:10 Hgb 10.8 g/dL (12.0-18.0) L 07/01/16 06:10 Hct 31.7 % (35.0-51.0) L 07/01/16 06:10 MCV 98.2 fl (80.0-94.0) H 07/01/16 06:10 MCH 33.3 pg (27.0-31.0) H 07/01/16 06:10 MCHC 33.9 g/dL (33.0-37.0) 07/01/16 06:10 RDW 13.6 % (11.5-14.5) 07/01/16 06:10 Plt Count 181 K/uL (130-400) 07/01/16 06:10 MPV 7.2 fl (7.2-11.7) 06/23/16 15:26 Neut % (Auto) 81.0 % (50.0-75.0) H 06/23/16 15:26 Lymph % (Auto) 8.4 % (20.0-40.0) L 06/23/16 15:26 [place] % (Auto) 8.6 % (0.0-10.0) 06/23/16 15:26 Eos % (Auto) 1.1 % (0.0-4.0) 06/23/16 15:26 Baso % (Auto) 0.9 % (0.0-2.0) 06/23/16 15:26 Neut # 8.5 K/uL (1.8-7.0) H 06/23/16 15:26 Lymph # 0.9 K/uL (1.0-4.3) L 06/23/16 15:26 [place] # 0.9 K/uL (0.0-0.8) H 06/23/16 15:26 Eos # 0.1 K/uL (0.0-0.7) 06/23/16 15:26 Baso # 0.1 K/uL (0.0-0.2) 06/23/16 15:26 Neutrophils % (Manual) 82 % (42-75) H 06/23/16 15:26 Band Neutrophils % 2 % (0-2) 06/23/16 15:26 Lymphocytes % (Manual) 5 % (20-50) L 06/23/16 15:26 Monocytes % (Manual) 8 % (0-10) 06/23/16 15:26 Eosinophils % (Manual) 2 % (0-7) 06/23/16 15:26 Basophils % (Manual) 1 % (0-2) 06/23/16 15:26 Toxic Granulation Present 06/23/16 15:26 Platelet Estimate Normal (NORMAL) 06/23/16 15:26 Anisocytosis (manual) Slight 06/23/16 15:26 Macrocytosis (manual) Slight 06/23/16 15:26 PT 11.4 SECONDS (9.6-11.2) H 06/23/16 17:57 INR 1.10 (0.92-1.08) H 06/23/16 17:57 APTT 28.9 SECONDS (23.3-32.5) 06/23/16 17:57 D-Dimer, Quantitative 2.56 mg/L FEU (0-0.50) H 06/25/16 15:08 Sodium 142 mmol/l (132-148) 07/01/16 06:10 Potassium 5.0 MMOL/L (3.6-5.0) 07/01/16 06:10 Chloride 107 mmol/L (98-107) 07/01/16 06:10 Carbon Dioxide 26 mmol/L (22-30) 07/01/16 06:10 Anion Gap 14 (10-20) 07/01/16 06:10 BUN 46 mg/dl (9-20) H 07/01/16 06:10 Creatinine 2.3 mg/dL (0.8-1.5) H 07/01/16 06:10 Est GFR ( Amer) 34 07/01/16 06:10 Est GFR (Non-Af Amer) 28 07/01/16 06:10 Random Glucose 80 mg/dL (75-110) 07/01/16 06:10 Calcium 8.4 mg/dL (8.4-10.2) 07/01/16 06:10 Phosphorus 3.5 mg/dl (2.5-4.5) 06/28/16 14:50 Total Bilirubin 0.2 mg/dl (0.2-1.3) 07/02/16 11:23 Direct Bilirubin 0.1 mg/ml (0.0-0.4) 07/02/16 11:23 AST 219 U/L (17-59) H D 07/02/16 11:23 ALT 328 U/L (21-72) H 07/02/16 11:23 Alkaline Phosphatase 79 U/L (38-126) 07/02/16 11:23 Troponin I 0.1050 ng/mL (0.00-0.120) 06/24/16 16:20 Total Protein 5.2 G/DL (6.3-8.2) L 07/02/16 11:23 Albumin 2.4 g/dL (3.5-5.0) L 07/02/16 11:23 Globulin 2.7 gm/dL (2.2-3.9) 07/02/16 11:23 Albumin/Globulin Ratio 0.9 (1.0-2.1) L 07/02/16 11:23 TSH 3rd Generation 3.91 mIU/ML (0.46-4.68) 06/29/16 19:56 PTH Intact Whole Molec 94 pg/mL (14-64) H 06/28/16 14:50
== END 2016-07-04 19:30 | DRG 86 ==
LOC: H.ER 13:39 → H.ERHOLD 17:39 → H.TEL 22:17 → H.MEDSURG1 07-04 11:17
PROVIDERS: ADMIT Internal Medicine; ATTEND Internal Medicine
DX: S06.5X0A Traumatic subdural hemorrhage without loss of consciousness, initial encounter (principal); N17.9 Acute kidney failure, unspecified; L89.212 Pressure ulcer of right hip, stage 2; N18.4 Chronic kidney disease, stage 4 (severe); D64.9 Anemia, unspecified; R00.1 Bradycardia, unspecified; I12.9 Hypertensive chronic kidney disease with stage 1 through stage 4 chronic kidney disease, or unspecified chronic kidney disease; B86 Scabies; G80.9 Cerebral palsy, unspecified; K59.00 Constipation, unspecified; Z91.81 History of falling; W19.XXXA Unspecified fall, initial encounter; Y93.9 Activity, unspecified; Y92.009 Unspecified place in unspecified non-institutional (private) residence as the place of occurrence of the external cause; I25.10 Atherosclerotic heart disease of native coronary artery without angina pectoris; I25.2 Old myocardial infarction; R29.6 Repeated falls; R47.1 Dysarthria and anarthria; R74.8 Abnormal levels of other serum enzymes